=== PATIENT | male | born 1985 | race Caucasian/White ===

== ENCOUNTER 2020-05-23 16:31 | Emergency (ER) | payer BC, SELFPAY ==
[2020-05-23 16:40] VITALS: BP 154/90; PULSE 104; RESP 16; TEMP 36.8; O2SAT 97
[2020-05-23] MEDS: predniSONE 20 MG TABLET 60 MG PO (16:45)
[2020-05-23] MEDS: FAMOTIDINE 20 MG TABLET PO (16:46)
[2020-05-23] MEDS: hydrOXYzine HCL 25 MG TABLET 50 MG PO (16:46)
--- NOTE | 2020-05-23 16:55 | ED.ALLEREA ---
HPI - Allergic Reaction General Chief complaint: Allergic Reaction <Malachi Gayle PA-C - Last Filed: 05/23/20 17:00> Stated complaint: insect sting left knee cap, allergic reaction <Malachi Gayle PA-C - Last Filed: 05/23/20 17:00> Time Seen by Provider: 05/23/20 16:33 <Malachi Gayle PA-C - Last Filed: 05/23/20 17:00> Source: patient <Malachi Gayle PA-C - Last Filed: 05/23/20 17:00> Mode of arrival: ambulatory <Malachi Gayle PA-C - Last Filed: 05/23/20 17:00> Limitations: no limitations <Malachi Gayle PA-C - Last Filed: 05/23/20 17:00> History of Present Illness HPI narrative: Patient is a 34-year-old male who presents with wasp sting to the left inner knee that occurred just prior to arrival patient notes aching pain with redness and swelling patient did use an EpiPen patient on arrival notes discomfort in the location of the sting but denies other injuries or complaints and has not taken anything else for his symptoms <Malachi Gayle PA-C - Last Filed: 05/23/20 17:00> Related Data Allergies/adverse reactions: Allergies Allergy/AdvReac Type Severity Reaction Status Date / Time poison mena extract Allergy Unknown Verified 10/09/19 12:32 <Malachi Gayle PA-C - Last Filed: 05/23/20 17:00> Review of Systems Review of Systems: All systems reviewed & are unremarkable except as noted in HPI and below <Malachi Gayle PA-C - Last Filed: 05/23/20 17:00> PMFSH Past Medical History Medical History: Medical History (Updated 05/24/20 @ 00:00 by Rosalba Bello) Anxiety <Malachi Gayle PA-C - Last Filed: 05/23/20 17:00> Surgical History Surgical History: Surgical History (Updated 05/23/20 @ 16:56 by Malachi Gayle PA-C) History of orthopedic surgery <Malachi Gayle PA-C - Last Filed: 05/23/20 17:00> Exam Narrative: Exam Narrative: GENERAL: Well-appearing, well-nourished, and in no acute distress. HEAD: Normocephalic, atraumatic. EYES: PERRLA and EOMI. ENT: Nares clear, no rhinorrhea or epistaxis. Mucous membranes moist. Oropharynx without tonsillar hypertrophy exudate or other lesions. No angioedema in the oropharynx NECK: Supple. No adenopathy or masses. No stridor CHEST: Clear to auscultation. No respiratory distress. No wheezes rales or rhonchi HEART: Regular rate and rhythm. No murmur heard. EXTREMITIES: Normal range of motion. No edema. SKIN: Warm, dry, patient with red tender swollen area to the left medial knee consistent with insect sting NEURO: No focal deficits. Alert and oriented x3. Neurovascularly intact PSYCH: Normal mood and affect. <DARLEEN Francois Filed: 05/23/20 17:00> Course Course Emergency Course: Patient in the room in no distress aware of case findings treatment plan and diagnosis felt appropriate for outpatient reevaluation <DARLEEN Francois Last Filed: 05/23/20 17:00> Vital Signs Vital signs: Vital Signs Temperature 36.8 C 05/23/20 16:40 Pulse Rate 104 H 05/23/20 16:40 Respiratory Rate 16 05/23/20 16:40 Blood Pressure 154/90 H 05/23/20 16:40 Pulse Oximetry 97 05/23/20 16:40 Temperature 36.8 C 05/23/20 16:40 Pulse Rate 107 H 05/23/20 17:38 Respiratory Rate 18 05/23/20 17:38 Blood Pressure 140/95 H 05/23/20 17:38 Pulse Oximetry 98 05/23/20 17:38 <DARLEEN Francois Last Filed: 05/23/20 17:00> Vital Signs Temperature 36.8 C 05/23/20 16:40 Pulse Rate 104 H 05/23/20 16:40 Respiratory Rate 16 05/23/20 16:40 Blood Pressure 154/90 H 05/23/20 16:40 Pulse Oximetry 97 05/23/20 16:40 Temperature 36.8 C 05/23/20 16:40 Pulse Rate 107 H 05/23/20 17:38 Respiratory Rate 18 05/23/20 17:38 Blood Pressure 140/95 H 05/23/20 17:38 Pulse Oximetry 98 05/23/20 17:38 <Laury Wheeler MD - Last Filed: 05/31/20 19:00> MDM - Allergic Reaction MDM Narrative Medical decision m
[2020-05-23 17:38] VITALS: BP 140/95; PULSE 107; RESP 18; O2SAT 98
== END 2020-05-23 17:43 | disposition home or self-care (01) ==
LOC: ANHED 17:01
PROVIDERS: Emergency Provider Emergency Medicine; PCP Nurse Practitioner Family
DX: T63.441A Toxic effect of venom of bees, accidental (unintentional), initial encounter (principal)
CPT/HCPCS: 99283; A9270; J7512

== ENCOUNTER 2020-09-06 22:08 | Emergency (ER) | payer BC, SELFPAY ==
--- NOTE | ~2020-09-06 | CT_ITS ---
EXAMINATION: CT abdomen pelvis w con DATE: 09/06/2020 23:47 INDICATION: Right upper quadrant abdominal pain for 3 days TECHNIQUE: Computed tomography (CT) of the abdomen and pelvis was performed with 100 cc Omnipaque 350 intravenous contrast. The dose-length product was 718.26 mGy-cm. Automated exposure control and iter ative reconstruction technique were employed. COMPARISON: CT dated 10/21/2017 FINDINGS: Lung bases are unremarkable. Heart size normal. No pleural or pericardial effusion. No sign ificant vascular abnormality. Small hiatal hernia. No acute osseous abnormality. There is mild thicke alvaro of the distal esophagus, suspicious for esophagitis. No significant vascular abnormality. No lym phadenopathy. Status post appendectomy. Gallbladder is contracted. Nonobstructive bowel gas pattern. No free air or free fluid. No evidence for hernia. No lymphadenopathy. The liver, spleen, pancreas, adrenal glands and kidneys are unremarkable. IMPRESSION: 1. Small hiatal hernia with thickening of the distal esophagus, suspicious for esophagitis. Reviewed, dictated and finalized at location A. [employer]
--- NOTE | 2020-09-06 22:16 | ED.ABDPAIN ---
HPI - Abdominal Pain General Chief Complaint: Abdominal Pain Stated Complaint: gall stone Time Seen by Provider: 09/06/20 22:15 Source: patient Mode of arrival: ambulatory Limitations: no limitations History of Present Illness HPI narrative: Patient is a 34-year-old male who presents for evaluation of right-sided abdominal pain. Patient reports a 3-day history of intermittent, worsening right upper quadrant pain which is described as sharp, aching in nature. No associated nausea, vomiting or fever. No chest pain or shortness of breath. Patient denies any lower abdominal pain, denies urinary symptoms, no dysuria or hematuria. He has a history of appendectomy. Related Data Home Medications Medication Instructions Recorded Confirmed baclofen 10 mg PO TID 09/06/20 09/06/20 duloxetine 30 mg PO 09/06/20 lutein 40 mg PO DAILY 09/06/20 omega-3 fatty acids [Fish Oil] 1,000 mg PO DAILY 09/06/20 pantoprazole 40 mg PO 09/06/20 pregabalin 225 mg PO 09/06/20 Allergies Allergy/AdvReac Type Severity Reaction Status Date / Time poison mnea extract Allergy Unknown Hives Verified 09/06/20 22:33 bee venom protein (honey bee) Allergy Hives Verified 09/06/20 22:33 [bees] Review of Systems Review of Systems: Narrative: CONSTITUTIONAL: Denies fever, chills, or sweats. EYES: Denies visual changes, redness, or discharge. ENT: Denies rhinorrhea, congestion, sore throat, or otalgia. CARDIOVASCULAR: Denies chest pain, palpitations, or edema. RESPIRATORY: Denies cough or dyspnea. GASTROINTESTINAL: Reports right upper quadrant abdominal pain without nausea, vomiting or diarrhea GENITOURINARY: Denies dysuria or hematuria. SKIN: Denies rash or itching. MUSCULOSKELETAL: Denies back pain, joint pain, or myalgia. NEUROLOGIC: Denies headache, numbness, or weakness. [facility] Past Medical History Medical History (Updated 09/07/20 @ 00:06 by Laury Wheeler MD) Anxiety Surgical History Surgical History (Updated 09/06/20 @ 22:28 by Laury Wheeler MD) History of appendectomy History of orthopedic surgery Social History Social History (Updated 09/06/20 @ 22:29 by Laury Wheeler MD) Tobacco type: smokeless tobacco Smokeless tobacco user: chewing tobacco Alcohol intake: current Alcohol use details: Social, rare Substance use: never Living arrangements: with family Gender identity (if verbalized by the patient): Male Exam Narrative: Exam Narrative: GENERAL: Awake, alert, conversant HEAD: Normocephalic, atraumatic. EYES: PERRLA and EOMI. ENT: Nares clear, no rhinorrhea or epistaxis. Mucous membranes moist. NECK: Supple. CHEST: No respiratory distress, breathing even and non labored HEART: Regular rate, sinus rhythm ABDOMEN:Non distended, mildly tender in the right upper quadrant, no rebound, no rigidity, no guarding, no other focal tenderness EXTREMITIES: Normal range of motion. No edema. SKIN: Warm, dry, no rash. NEURO:No focal deficits. Alert and oriented x3 Course Vital Signs Vital signs: Vital Signs Temperature 36.2 C L 09/06/20 22:28 Pulse Rate 92 09/06/20 22:28 Respiratory Rate 18 09/06/20 22:28 Blood Pressure 145/99 H 09/06/20 22:28 Pulse Oximetry 100 09/06/20 22:28 Temperature 36.7 C 09/07/20 00:14 Pulse Rate 70 09/07/20 00:14 Respiratory Rate 16 09/07/20 00:14 Blood Pressure 142/79 H 09/07/20 00:14 Pulse Oximetry 100 09/07/20 00:14 MDM - Abdominal Pain MDM Narrative Medical decision making narrative: Patient presented for evaluation of upper abdominal pain. At the time of assessment, ABCs are intact and vital signs are stable. Mild right upper quadrant epigastric pain at the time of assessment. No chest pain or back pain. No shortness of breath. No anginal type symptoms. Somewhat concerning for cholelithiasis versus cholecystitis. Laboratory results are reassuring. No leukocytosis, no transaminitis, hyperbilirubinemia or elevation in lipase. CT s
[2020-09-06 22:28] VITALS: BP 145/99; PULSE 92; RESP 18; TEMP 36.2; O2SAT 100
[2020-09-06 23:01] LABS: Basophils Percent Auto 0.7 % (0.2-1.2); Eosinophils Absolute Auto 0.1 K/mm3 (0-0.3); Eosinophils Percent Auto 2.1 % (0-4.4); Hematocrit 46.8 % (42.0-52.0); Immature Granulocyte Absolute 0.01 K/mm3 (0.00-0.031); Immature Granulocyte Percent A 0.2 % (0-0.5); Lymphocytes Absolute Auto 2.33 K/mm3 (0.9-3.2); Lymphocytes Percent Auto 41.5 % (18.3-44.2); Mean Corpuscular HGB Conc 34.2 g/dl (32-36); Mean Corpuscular Hemoglobin 29.7 pg (26-34); Mean Platelet Volume 8.8 fl (7.4-10.4); Monocytes Absolute Auto 0.7 K/mm3 (0.1-0.6); Monocytes Percent Auto 11.9 % (2.6-8.5); Neutrophils Absolute Auto 2.5 K/mm3 (1.3-6.7); Neutrophils Percent Auto 43.6 % (45.5-73.1); Platelet Count Result 260 k/mm3 (150-375); Red Blood Count 5.38 M/mm3 (4.6-6.20); Red Cell Distribution Width 12.1 % (11.5-14.5); White Blood Count 5.6 K/mm3 (4.5-10.0)
[2020-09-06 23:25] LABS: Alanine Aminotransferase 38 U/L (4-50); Albumin Level 3.8 g/dL (3.5-5.1); Alkaline Phosphatase 51 U/L (38-126); Anion Gap 5 mmol/L (8-16); Aspartate Amino Transferase 27 U/L (17-59); Bilirubin,Total 0.4 mg/dL (0.2-1.3); Blood Urea Nitrogen 17 mg/dL (9-20); Calcium 8.5 mg/dL (8.4-10.2); Carbon Dioxide 30 mmol/L (22-30); Chloride 104 mmol/L (98-107); Estimated CRCL calculation 131 ml/min; Estimated Glomerular Filt Rate > 60; Glucose 99 mg/dL (75-110); Lipase 51 U/L (23-300); Potassium 3.6 mmol/L (3.4-5.0); Sodium 139 mmol/L (137-145)
[2020-09-07 00:14] VITALS: BP 142/79; PULSE 70; RESP 16; TEMP 36.7; O2SAT 100
== END 2020-09-07 00:15 | disposition home or self-care (01) ==
PROVIDERS: Emergency Provider Emergency Medicine; PCP Nurse Practitioner Family
DX: K20.90 Esophagitis, unspecified without bleeding (principal); F41.9 Anxiety disorder, unspecified; F17.220 Nicotine dependence, chewing tobacco, uncomplicated
CPT/HCPCS: 36415; 74177; 80053; 83690; 85025; 99284; Q9967

== ENCOUNTER 2020-10-10 00:39 | Outpatient (CLI) | payer BC, SELFPAY ==
[2020-10-10 22:05] LABS: SARS-CoV-2 RNA PCR Negative
== END 2020-10-10 00:40 | disposition home or self-care (01) ==
LOC: ANHCOVIDDT 00:39
PROVIDERS: PCP Nurse Practitioner Family; Visit Provider Internal Medicine Gastroenterology
DX: Z01.812 Encounter for preprocedural laboratory examination (principal); Z20.822 Contact with and (suspected) exposure to COVID-19
CPT/HCPCS: C9803; U0003; U0005

== ENCOUNTER 2020-10-13 01:23 | Day surgery (SDC) | payer BC, SELFPAY ==
[2020-09-28 10:44] VITALS: BMI 31.2
[2020-10-13 12:02] VITALS: BP 135/85; PULSE 50; RESP 16; TEMP 36.8; O2SAT 98; BMI 30.6
[2020-10-13] MEDS: LACTATED RINGERS 1,000 ML 150 ML IV CONT (12:18)
--- NOTE | 2020-10-13 14:42 | WPDHPUPDATE1 ---
History and Physical Update Update Date/Time: 10/13/20 14:42 History and Physical has been reviewed, including an updated exam of the patient. There are NO changes in the patient's condition. Risks, benefits, and alternatives have been discussed and questions answered. Patient agrees to proceed with procedure.
[2020-10-13] MEDS: BENZOCAINE (*SP) 60 ML SPRAY CAN (HURRICAINE) 1 SPRAY MUCOUS MEM (14:50)
[2020-10-13 15:00] VITALS: BP 100/74; PULSE 78; RESP 17; O2SAT 96
[2020-10-13 15:10] VITALS: BP 114/84; PULSE 78; RESP 17; O2SAT 100
[2020-10-13 15:20] VITALS: BP 130/84; PULSE 78; RESP 17; O2SAT 99
== END 2020-10-13 15:42 | disposition home or self-care (01) ==
PROVIDERS: PCP Nurse Practitioner Family; Visit Provider Internal Medicine Gastroenterology
PROC: 0DJ08ZZ Inspection of Upper Intestinal Tract, Via Natural or Artificial Opening Endoscopic (ICD-10-PCS; CPT 43235; principal; 2020-10-13 14:00)
DX: K21.00 Gastro-esophageal reflux disease with esophagitis, without bleeding (principal); R13.10 Dysphagia, unspecified; K44.9 Diaphragmatic hernia without obstruction or gangrene; K29.50 Unspecified chronic gastritis without bleeding; F41.9 Anxiety disorder, unspecified; F17.220 Nicotine dependence, chewing tobacco, uncomplicated
CPT/HCPCS: 43239; 88305; J2704; J7120

== ENCOUNTER → 2021-01-02 01:39 | Outpatient (CLI) | payer BC, SELFPAY ==
[2021-01-02 19:04] LABS: SARS-CoV-2 RNA PCR Negative
== END ==
PROVIDERS: PCP Nurse Practitioner Family; Visit Provider Surgery
DX: Z01.812 Encounter for preprocedural laboratory examination (principal); Z20.822 Contact with and (suspected) exposure to COVID-19
CPT/HCPCS: C9803; U0003; U0005

== ENCOUNTER 2021-01-02 11:28 | Outpatient (CLI) | payer BC, SELFPAY ==
--- NOTE | ~2021-01-02 | XR_ITS ---
EXAMINATION: XR chest 2V DATE: 01/02/2021 11:54 INDICATION: Gastroesophageal reflux disease with esophagitis. TECHNIQUE: Frontal and lateral views of the chest were obtained. COMPARISON: Chest 2 views 10/27/2017, CT abdomen and pelvis 09/06/2020 FINDINGS: The chest demonstrates clear lungs without pneumonia, pleural effusion, or pneumothorax. Th e heart size is normal. IMPRESSION: 1. No acute cardiopulmonary disease. Reviewed, dictated and finalized at location B.
--- NOTE | 2021-01-02 11:30 | ECG_ITS ---
Measurements Intervals [place] Rate: 67 P: 26 [place]: 160 QRS: 15 QRSD: 95 T: 13 QT: 362 QTc: 384 Interpretive Statements SINUS RHYTHM NORMAL ECG Electronically Signed On 01-02-2021 12:20:38 CDT by Daniel Das D.O.
[2021-01-02 12:10] LABS: Basophils Percent Auto 0.4 % (0.2-1.2); Eosinophils Absolute Auto 0.1 K/mm3 (0-0.3); Eosinophils Percent Auto 1.8 % (0-4.4); Hematocrit 50.8 % (42.0-52.0); Hemoglobin 17.2 g/dL (14.0-18.0); Immature Granulocyte Absolute 0.01 K/mm3 (0.00-0.031); Immature Granulocyte Percent A 0.2 % (0-0.5); Lymphocytes Absolute Auto 1.38 K/mm3 (0.9-3.2); Lymphocytes Percent Auto 27.4 % (18.3-44.2); Mean Corpuscular HGB Conc 33.9 g/dl (32-36); Mean Corpuscular Hemoglobin 30.6 pg (26-34); Mean Corpuscular Volume 90.2 fl (80-100); Mean Platelet Volume 9.2 fl (7.4-10.4); Monocytes Absolute Auto 0.6 K/mm3 (0.1-0.6); Monocytes Percent Auto 10.9 % (2.6-8.5); Neutrophils Percent Auto 59.3 % (45.5-73.1); Platelet Count Result 264 k/mm3 (150-375); Red Blood Count 5.63 M/mm3 (4.6-6.20); Red Cell Distribution Width 12.5 % (11.5-14.5)
[2021-01-02 12:20] LABS: Anion Gap 4 mmol/L (8-16); Blood Urea Nitrogen 16 mg/dL (9-20); Calcium 8.8 mg/dL (8.4-10.2); Carbon Dioxide 30 mmol/L (22-30); Chloride 105 mmol/L (98-107); Estimated Glomerular Filt Rate > 60; Glucose 95 mg/dL (75-110); Potassium 4.4 mmol/L (3.4-5.0); Sodium 139 mmol/L (137-145)
== END 2021-01-02 11:29 | disposition home or self-care (01) ==
LOC: ANHSURGERY 11:33
PROVIDERS: PCP Nurse Practitioner Family; Visit Provider Surgery
DX: K21.00 Gastro-esophageal reflux disease with esophagitis, without bleeding (principal); Z01.818 Encounter for other preprocedural examination
CPT/HCPCS: 36415; 71046; 80048; 85025; 86850; 86900; 86901; 93005

== ENCOUNTER 2021-01-05 02:01 | Day surgery (SDC) | payer BC, SELFPAY ==
[2020-12-22 14:26] VITALS: BMI 31.0
--- NOTE | 2021-01-03 15:38 | PM.IMHP ---
H&P: HPI History of Present Illness Date/Time: 01/03/21 15:38 Chief Complaint: gastroesophageal reflux Narrative: patient is a 35-year-old man who was in the emergency room with epigastric and right upper quadrant burning pain. The pain was shooting and was worse when he 8 and lie down. He had a CT scan which actually showed a thickened distal esophagus suspicious for esophagitis. There were no gallstones. He has been taking large doses of acid reducing medications including Protonix 40 mg b.i.d. and Carafate t.i.d. with the still symptoms of reflux and heartburn. He had an EGD October [address] showed persistent esophagitis. There was no Ceron's esophagus. Patient continues to have recalcitrant reflux symptoms despite maximal medical therapy. He was seen in the office. He had an esophageal manometry which showed a hypotensive lower esophageal sphincter but otherwise esophageal motility that would be satisfactory for fundoplication. CT scan and esophageal manometry suggested a small hiatal hernia however at EGD he was noted to have a large, 7 cm hiatal hernia. After thorough discussion in the office, he is taken to surgery now for laparoscopic Karla fundoplication. Review of Systems Review of Systems: All systems reviewed & are unremarkable except as noted in HPI and below ( HPI and those items noted below) Constitutional: Constitutional: Denies chills and Denies fever(s) Cardiovascular: Cardiovascular: Reports chest pain ( heartburn), Denies diaphoresis, Denies dyspnea and Denies paroxysmal nocturnal dyspnea Respiratory: Respiratory: Denies chest congestion, Reports cough and Denies dyspnea Gastrointestinal: Gastrointestinal: Reports heartburn Musculoskeletal: Musculoskeletal: Reports atrophy and Reports muscle weakness Integumentary/Breasts: Skin/Breast: Denies lesions and Denies rash Neurologic: Reports numbness and Reports other ( complex regional pain syndrome type 1 following right hand surgery) [facility] Past Medical History Medical History Anxiety CRPS (complex regional pain syndrome) type I Right hand and right arm - developed after surgery to right hand and managed by pain management. 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 Gender identity (if verbalized by the patient): Male Spiritual care concerns: No Meds Home Medications and Allergies Home Medications Medication Instructions Recorded Confirmed Type epinephrine 0.3 ml SUB-Q ONCE #2 each 05/23/20 12/22/20 Rx baclofen 10 mg PO TID 09/06/20 12/22/20 History duloxetine 30 mg PO BID 09/06/20 12/22/20 History lutein 40 mg PO DAILY 09/06/20 12/22/20 History omega-3 fatty acids [Fish Oil] 1,000 mg PO DAILY 09/06/20 12/22/20 History pantoprazole 40 mg PO BID 09/06/20 12/22/20 History pregabalin 225 mg PO BID 09/06/20 12/22/20 History naltrexone 50 mg tablet 4.5 mg PO BID 09/14/20 12/22/20 History sucralfate 1 gram tablet 1 g PO TID tablet 09/14/20 12/22/20 History multivitamin 1 tablet PO DAILY 10/24/20 12/22/20 History vitamin B complex 1 tablet PO DAILY 10/24/20 12/22/20 History Allergies Allergy/AdvReac
--- NOTE | 2021-01-04 10:06 | WPDANESEPPF ---
Anes - Initial Pre Proc Eval Procedure: Operation Date: 01/05/21 10:30 Proposed Procedures p Laparoscopic Karla Fundoplication - Dustin Whitaker MD Date/Time: 01/04/21 10:06 Surgeon: Dustin Whitaker MD Pre Op Diagnosis: GERD with Esophagitis Patient Data Age: 35 Gender: M Height: 1.75 m Weight: 95.25 kg Allergies Allergy/AdvReac Type Severity Reaction Status Date / Time poison mena extract Allergy Unknown Hives Verified 01/05/21 09:00 bee venom protein (honey bee) Allergy Hives Verified 01/05/21 09:00 [bees] Home Medications Medication Instructions Recorded Confirmed Type epinephrine 0.3 ml SUB-Q ONCE #2 each 05/23/20 12/22/20 Rx baclofen 10 mg PO TID 09/06/20 01/05/21 History duloxetine 30 mg PO BID 09/06/20 01/05/21 History lutein 40 mg PO DAILY 09/06/20 01/05/21 History omega-3 fatty acids [Fish Oil] 1,000 mg PO DAILY 09/06/20 01/05/21 History pantoprazole 40 mg PO BID 09/06/20 01/05/21 History pregabalin 225 mg PO BID 09/06/20 01/05/21 History naltrexone 50 mg tablet 4.5 mg PO BID 09/14/20 12/22/20 History sucralfate 1 gram tablet 1 g PO TID tablet 09/14/20 01/05/21 History multivitamin 1 tablet PO DAILY 10/24/20 01/05/21 History vitamin B complex 1 tablet PO DAILY 10/24/20 01/05/21 History memantine 5 mg PO BID 01/05/21 01/05/21 History Patient hx anesthesia problems: none Family hx anesthesia problems: none PMFSH Past Medical History Medical History (Updated 01/04/21 @ 10:08 by Rashad Yi MD) Anxiety CRPS (complex regional pain syndrome) type I Right hand and right arm - developed after surgery to right hand and managed by pain management. Hiatal hernia with GERD and esophagitis Obesity Surgical History Surgical History History of appendectomy History of esophagogastroduodenoscopy (EGD) History of orthopedic surgery Family History Family History Father Cerebrovascular accident Mother Hypertension Other Diabetes mellitus Heart disease Cancer Social History Social History Tobacco type: cigarettes and smokeless tobacco Smokeless tobacco user: chewing tobacco Additional smoking assessment comments: 3/4 OF A CAN/DAY X 15 YRS Alcohol intake: current Drinks per week: 4 Substance use: never Substance use type: does not use Living arrangements: with family 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 Questions were solicited and answers provided to the satisfaction of the patient/family/POA.
[2021-01-05] VITALS (12 sets, daily range): BP systolic 125–144; BP diastolic 75–89; PULSE 72–106; RESP 14–20; TEMP 36.1–37.4; O2SAT 93–99; BMI 30.1
[2021-01-05] MEDS: LACTATED RINGERS 1,000 ML 30 ML IV CONT ×2 (09:30→15:05)
--- NOTE | 2021-01-05 10:38 | WPDHPUPDATE1 ---
History and Physical Update Update Date/Time: 01/05/21 10:38 History and Physical has been reviewed, including an updated exam of the patient. There are NO changes in the patient's condition. Risks, benefits, and alternatives have been discussed and questions answered. Patient agrees to proceed with procedure.
[2021-01-05] MEDS: ceFAZolin 2 GM/D5W 50 ML 2 GM/50 ML BAG IVPB (10:49)
[2021-01-05] MEDS: BUPIVACAINE/EPINEPHRINE 0.5% 30 ML VIAL INFILTRATE (12:07)
[2021-01-05] MEDS: ceFAZolin SODIUM 1 GM VIAL IV PUSH (14:40)
[2021-01-05] MEDS: HYDROmorphone HCL INJ (*CRX) 1 MG/ML SYR 0.25 MG IV PUSH ×7 (15:27→16:14)
--- NOTE | 2021-01-05 15:27 | PM.PROC ---
Procedure Note - Detailed Date of procedure: 01/05/21 Pre-op diagnosis: GERD with Esophagitis Gastroesophageal reflux, hiatal hernia Post-op diagnosis: same Procedure performed: Laparoscopic Karla fundoplication Description of procedure: The patient was taken to surgery and induced into general anesthesia. Mishra catheter was placed. Full prep and drape of the abdomen was carried out. 0.5% Marcaine with epinephrine local was infiltrated prior to placement of each of the trocars. The initial trocar was in the midline cephalad to the umbilicus. The varies needle was used to gain access to the abdominal cavity. Water drop technique was used to confirm. We insufflated the abdomen and then used a [address] the initial port. With this port intraperitoneal we then placed the remaining ports under direct visualization. A left lateral subcostal 10 11 port was placed. Right and left epigastric trocars which were also 10 11 ports were placed. A 12 mm left lateral subcostal port was placed. The patient was then placed in reverse Trendelenburg. A liver retractor was introduced from the right lateral port and then used to elevate the lateral segment of the left lobe of the liver, thereby exposing the diaphragmatic hiatus and hiatal hernia. We started by dividing the hepatic colic ligament over lying the right erik. Virtually all the dissection was done with the LigaSure. No cautery was used. The surgery was made more difficult in that the adhesions were tenacious and it seemed that all dissection was accompanied with trouble some bleeding today. The bleeding was not significant but did make it difficult to visualize and required attention for hemostasis. We then further exposed the right erik of the diaphragm dissecting between this and the hiatal hernia. Gentle traction on the herniated contents was used and we eventually were able to identify the left erik and dissect posterior to the esophagus and upper stomach. Some additional dissection in the anterior most aspect of the diaphragmatic hiatus was also carried out. We then turned the stomach so that the greater curvature and greater omentum were exposed. This was very difficult as the posterior aspect of the stomach was stuck to the retroperitoneum and the upper aspect or fundus of the stomach was stuck not only to they posterior erik but also to the spleen. Using the LigaSure, we entered the lesser sac and divided the greater omentum from the greater curvature of the stomach. This was done initially in the upper portion the stomach but we were able to mobilize a little of the stomach, I had to go back and start at about the midportion the stomach and repeat the process. It was still difficult to expose the posterior aspect of the stomach. We shifted our camera position and tried several different trocar positions. Eventually the posterior adhesions of the stomach were taken down. Adhesions to the left erik were taken down and finally the adhesions to the undersurface of the spleen were taken down without causing any splenic bleeding. Like the other adhesions in the surgery, all were accompanied by much more bleeding than we normally would see. This occurred despite being exceptionally careful and identifying the anatomy as best possible before dissecting. The fundus actually was very close to and somewhat adherent with adhesions to the spleen. We took great care to avoid any injury to the spleen or its vessels. Fortunately there was no bleeding whatsoever in dissecting the stomach off the spleen. We then further went on to dissect adhesions that were overlying the left erik. Eventually the left erik was fully exposed. The esophagus is then retracted to the right and dissection was carried out in the mediastinum freeing the esophagus from adhesions there and elongating the shortened esophagus. This dissection was carried quite high in the mediastinum. We then turned the stom
--- NOTE | 2021-01-05 16:45 | ADMGEN ---
This patient, Olvin Mead Jr., was admitted to . Patient/family oriented to hospital policies and general routines including ID bracelet, bed and alarms, visiting hours, pain management, procedures, bathroom and other care routines, personal items, smoking policy, room service/diet, and visiting hours. Information on how to activate the Rapid Response Team has been discussed. Patient/Family are encouraged to report perceived risks to care and to ask questions if they do not understand what they are told or what they should do.
[2021-01-05] MEDS: LACTATED RINGERS 1,000 ML 80 ML IV CONT (17:06)
[2021-01-05] MEDS: PREGABALIN (*CRX) 75 MG CAPSULE 225 MG PO (17:06)
[2021-01-05] MEDS: BACLOFEN 10 MG TABLET PO (17:06)
[2021-01-05] MEDS: DULoxetine HCL 30 MG CAPSULE.DR PO (17:13)
[2021-01-05] MEDS: MEMANTINE 5 MG TABLET PO (17:13)
[2021-01-05] MEDS: ACETAMINOPHEN 500 MG TABLET 1000 MG PO (19:00)
[2021-01-05] MEDS: ENOXAPARIN 30 MG/0.3 ML SYRINGE SUB-Q (22:05)
[2021-01-06] VITALS: BP 127/70; PULSE 85; RESP 16; TEMP 36; O2SAT 95
[2021-01-06 04:00] VITALS: BP 141/71; PULSE 82; RESP 16; TEMP 36.8; O2SAT 96
[2021-01-06] MEDS: LACTATED RINGERS 1,000 ML 80 ML IV CONT (04:35)
[2021-01-06] MEDS: ACETAMINOPHEN 500 MG TABLET 1000 MG PO ×2 (04:35→10:13)
[2021-01-06 05:59] LABS: Hematocrit 46.8 % (42.0-52.0); Hemoglobin 15.6 g/dL (14.0-18.0); Mean Corpuscular HGB Conc 33.3 g/dl (32-36); Mean Corpuscular Hemoglobin 29.8 pg (26-34); Mean Corpuscular Volume 89.5 fl (80-100); Mean Platelet Volume 9.2 fl (7.4-10.4); Platelet Count Result 276 k/mm3 (150-375); Red Blood Count 5.23 M/mm3 (4.6-6.20); Red Cell Distribution Width 12.2 % (11.5-14.5)
[2021-01-06 06:13] LABS: Anion Gap 5 mmol/L (8-16); Blood Urea Nitrogen 12 mg/dL (9-20); Calcium 8.5 mg/dL (8.4-10.2); Carbon Dioxide 28 mmol/L (22-30); Chloride 106 mmol/L (98-107); Estimated CRCL calculation 115 ml/min; Estimated Glomerular Filt Rate > 60; Glucose 97 mg/dL (75-110); Potassium 3.9 mmol/L (3.4-5.0); Sodium 139 mmol/L (137-145)
[2021-01-06] MEDS: ENOXAPARIN 30 MG/0.3 ML SYRINGE SUB-Q (08:42)
[2021-01-06] MEDS: DULoxetine HCL 30 MG CAPSULE.DR PO (08:43)
[2021-01-06] MEDS: MEMANTINE 5 MG TABLET PO (08:43)
[2021-01-06] MEDS: PANTOPRAZOLE 40 MG TABLET PO (08:43)
[2021-01-06] MEDS: BACLOFEN 10 MG TABLET PO (08:43)
[2021-01-06] MEDS: PREGABALIN (*CRX) 75 MG CAPSULE 225 MG PO (08:45)
--- NOTE | 2021-01-06 10:43 | PM.DS ---
DS: Admitting Diagnosis Admitting Diagnosis Admitting Diagnosis: Gastroesophageal reflux disease with esophagitis complex regional pain syndrome type 1 right hand and arm DS: Discharge Diagnosis Discharge Diagnosis (1) Hiatal hernia with GERD and esophagitis: Code(s): K44.9 - Diaphragmatic hernia without obstruction or gangrene; K21.00 - Gastro-esophageal reflux disease with esophagitis, without bleeding Status: Chronic (2) CRPS (complex regional pain syndrome) type I: Code(s): G90.50 - Complex regional pain syndrome I, unspecified Status: Chronic DS: Summary Hospital Course Hospital Course: patient was seen in the office on a couple of different occasions prior to surgery. He was known to have recalcitrant gastroesophageal reflux disease with esophagitis documented by EGD and biopsy. Preoperatively he had esophageal manometry studies that showed no contraindication to fundoplication. After thorough discussion, he was taken to surgery on 01/05/2021 and underwent laparoscopic Karla fundoplication. The procedure was somewhat difficult taking about 3-1/2 hours. It went well however. The patient was comfortable being observed overnight. He was tolerating liquids and some soft foods without difficulty. He was taking only Tylenol for pain. He is discharged now on postop day 1. In good condition. Status at Discharge Functional status at discharge: independent ambulation Overall status at discharge: patient is progressing back to baseline Time Spent with Patient Time attestation: Total time spent providing and/or coordinating discharge services: Time spent: Less than 30 minutes Exam Resp: Effort & Inspection: normal respiratory effort and able to speak in complete sentences Auscultation: clear to auscultation bilaterally, no rales and no wheezes GI: Inspection: incision ( All incisions healing well) GI Palp: Yes Soft to palpation and Yes Tenderness to palpation present (GI) Auscultation: normal bowel sounds DS: Data Data Completed and Pending Labs on day of discharge: Labs from last 24 hours 01/06/21 01/06/21 05:25 05:25 WBC 13.0 H RBC 5.23 Hgb 15.6 Hct 46.8 MCV 89.5 MCH 29.8 MCHC 33.3 RDW 12.2 Plt Count 276 MPV 9.2 Sodium 139 Potassium 3.9 Chloride 106 Carbon Dioxide 28 Anion Gap 5 L BUN 12 Creatinine 0.90 Estim Creat Clear Calc 115 Estimated GFR > 60 Glucose 97 Calcium 8.5 Discharge Plan Discharge Patient Disposition: Home, Self-Care Discharge Instructions: Ambulate 3-4 x per day and as tolerated. No lifting over 15-20lbs. May bathe or shower. Stairs are OK. May drive a car in 3 days. low fiber diet next week then as tolerated Patient Instructions: How to Stop Smoking (DC), Pain Management (DC) Stand Alone Forms: Low Residue/Low Fiber Diet Follow-up/Referrals: Dustin Whitaker MD [Physician] - 2 Weeks Discharge Medications: New acetaminophen 500 mg Tablet 1,000 mg PO Q6H PRN (Reason: Pain 1-5) Qty: 40 RF: 0 ketorolac 10 mg tablet 10 mg PO Q6H 4 Days Qty: 16 RF: 0 Continued naltrexone 50 mg tablet 4.5 mg PO BID RF: 0 sucralfate 1 gram tablet 1 g PO TID RF: 0 vitamin B complex [B Complex-Vitamin B12] Tablet 1 tablet PO DAILY RF: 0 multivitamin Tablet 1 tablet PO DAILY RF: 0 epinephrine 0.3 mg/0.3 mL auto-injector 0.3 ml SUB-Q ONCE Qty: 2 RF: 0 baclofen 10 mg tablet 10 mg PO TID RF: 0 pantoprazole 40 mg tablet,delayed release (DR/EC) 40 mg PO BID RF: 0 omega-3 fatty acids Capsule 1,000 mg PO DAILY RF: 0 duloxetine 30 mg capsule,delayed release(DR/EC) 30 mg PO BID RF: 0 pregabalin 225 mg capsule 225 mg PO BID RF: 0 lutein 40 mg Capsule 40 mg PO DAILY RF: 0 memantine 5 mg Tablet 5 mg PO BID RF: 0
== END 2021-01-06 12:35 | disposition home or self-care (01) ==
LOC: ANHSURGERY 08:42 → ANH3MED 16:54
PROVIDERS: PCP Nurse Practitioner Family; Visit Provider Surgery
PROC: 0DV44ZZ Restriction of Esophagogastric Junction, Percutaneous Endoscopic Approach (ICD-10-PCS; CPT 43281; principal; 2021-01-05 10:30)
DX: K21.00 Gastro-esophageal reflux disease with esophagitis, without bleeding (principal); K44.9 Diaphragmatic hernia without obstruction or gangrene; K22.8 Other specified diseases of esophagus; K66.0 Peritoneal adhesions (postprocedural) (postinfection); R10.13 Epigastric pain; R10.11 Right upper quadrant pain; F41.9 Anxiety disorder, unspecified; G90.511 Complex regional pain syndrome I of right upper limb; F17.220 Nicotine dependence, chewing tobacco, uncomplicated; F17.210 Nicotine dependence, cigarettes, uncomplicated; E66.9 Obesity, unspecified; Z68.30 Body mass index [BMI] 30.0-30.9, adult
CPT/HCPCS: 43250; 36415; 80048; 85027; A9270; C1713; J0131; J0330; J0690; J1100; J1170; J1650; J2250; J2405; J2704; J2710; J3010; J7120

== ENCOUNTER 2021-01-07 00:01 | Inpatient (IN) | payer BC, SELFPAY ==
--- NOTE | ~2021-01-07 | CT_ITS ---
EXAMINATION: CT abdomen pelvis w con DATE: 01/07/2021 02:16 INDICATION: Abdominal pain. Laparoscopic Karla fundoplication on 01/05/2021. TECHNIQUE: Computed tomography (CT) of the abdomen and pelvis was performed with 100 mL Omnipaque 350 intravenous contrast. Automated exposure control and iterative reconstruction technique were employe d. The dose-length product was 578.53 mGy-cm. COMPARISON: CT abdomen and pelvis 09/06/2020 FINDINGS: The visualized portions of the lung bases demonstrate bilateral airspace opacities with vol ume loss, likely atelectasis. There are small pleural effusions. The heart size is normal. No pericar dial effusion. Pneumomediastinum is noted, consistent with recent surgery. There is body wall gas josé miguel aterally. There is a surgical clip in the stomach. There is fat stranding around the distal esophagus , consistent with inflammation. There is wall thickening the distal esophagus, consistent with esopha gitis. There are changes of fundoplication. There is fat stranding around the proximal stomach, consi stent with inflammation. There is low attenuation in the medial spleen, consistent with infarct versu s contusion. The liver, gallbladder, pancreas, adrenal glands, and kidneys are normal. There are no d ilated loops of bowel. There are changes of appendectomy. There are no pathologically enlarged lymph nodes. There is trace pelvic ascites. There are areas of inflammation in the anterior body wall, cons istent with surgical access sites. There is mild thoracic spondylosis. IMPRESSION: 1. Changes of recent fundoplication with distal esophagitis. 2. Infarct versus contusion of the medial spleen. Reviewed, dictated and finalized at location A.
[2021-01-07 00:30] VITALS: BP 141/88; PULSE 93; RESP 18; TEMP 36.6; O2SAT 98
[2021-01-07 01:39] LABS: Basophils Percent Auto 0.3 % (0.2-1.2); Eosinophils Absolute Auto 0.1 K/mm3 (0-0.3); Eosinophils Percent Auto 1.1 % (0-4.4); Hematocrit 46.5 % (42.0-52.0); Hemoglobin 15.5 g/dL (14.0-18.0); Immature Granulocyte Absolute 0.02 K/mm3 (0.00-0.031); Immature Granulocyte Percent A 0.2 % (0-0.5); Lymphocytes Absolute Auto 1.84 K/mm3 (0.9-3.2); Lymphocytes Percent Auto 20.1 % (18.3-44.2); Mean Corpuscular HGB Conc 33.3 g/dl (32-36); Mean Corpuscular Hemoglobin 30.3 pg (26-34); Mean Platelet Volume 8.9 fl (7.4-10.4); Monocytes Absolute Auto 0.9 K/mm3 (0.1-0.6); Monocytes Percent Auto 9.7 % (2.6-8.5); Neutrophils Absolute Auto 6.3 K/mm3 (1.3-6.7); Neutrophils Percent Auto 68.6 % (45.5-73.1); Platelet Count Result 219 k/mm3 (150-375); Red Blood Count 5.11 M/mm3 (4.6-6.20); Red Cell Distribution Width 12.4 % (11.5-14.5); White Blood Count 9.2 K/mm3 (4.5-10.0)
[2021-01-07 01:49] LABS: Prothrombin Time 13.5 Seconds (11.1-14.7)
[2021-01-07 01:50] LABS: Add Urine Microscopic? YES; Appearance Urine Clear (Clear); Bilirubin Urine Negative (Negative); Blood Urine Negative (Negative); Color Urine Yellow (Yellow); Glucose Urine UA Negative (Negative); Ketones Urine Negative (Negative); Leukocyte Esterase Ur Negative LEU/UL (Negative); Mucus Urine Rare /lpf; Nitrate Urine Negative (Negative); Protein Urine Negative (Negative); RBC Urine 0-2 /hpf (0-2); Specific Grav Ur 1.017 (1.001-1.035); Squamous Epithelial Cell Urine Rare /hpf (Few); WBC Urine 0-3 /hpf
[2021-01-07 01:50] LABS: Partial Thromboplastin Time 28.4 SECONDS (22.3-36.8)
[2021-01-07 01:52] LABS: Lactic Acid Reflex 0.8 mmol/L (0.7-2.1)
[2021-01-07 01:53] LABS: Alanine Aminotransferase 93 U/L (4-50); Albumin Level 3.8 g/dL (3.5-5.1); Alkaline Phosphatase 50 U/L (38-126); Anion Gap 3 mmol/L (8-16); Aspartate Amino Transferase 75 U/L (17-59); Bilirubin,Total 0.9 mg/dL (0.2-1.3); Blood Urea Nitrogen 10 mg/dL (9-20); Calcium 8.3 mg/dL (8.4-10.2); Carbon Dioxide 30 mmol/L (22-30); Chloride 106 mmol/L (98-107); Estimated CRCL calculation 105 ml/min; Estimated Glomerular Filt Rate > 60; Glucose 103 mg/dL (75-110); Lipase 37 U/L (23-300); Potassium 4.2 mmol/L (3.4-5.0); Sodium 139 mmol/L (137-145)
[2021-01-07 02:04] LABS: Troponin I < 0.012 ng/mL (0.000-0.034)
[2021-01-07] MEDS: KETOROLAC 30 MG/ML VIAL (*BKC) IV PUSH ×3 (03:11→15:43)
[2021-01-07] MEDS: SODIUM CHLORIDE 0.9% IV 1,000 ML 999 ML IV CONT (03:11)
[2021-01-07 04:09] VITALS: BP 124/85; PULSE 81; RESP 18; O2SAT 96
--- NOTE | 2021-01-07 04:18 | ED.GENADULT ---
HPI - General Adult General Chief complaint: Unspecified Stated complaint: post op pain Time Seen by Provider: 01/07/21 02:12 History of Present Illness HPI narrative: Patient is a 35-year-old gentleman who presents the emergency department with chief complaint of abdominal pain. Patient reports that he had a Karla fundoplication done at our facility yesterday and reports that he was doing well until he went home and then started having severe pain. Patient states the pain is worse with movement and improved with rest patient denies fever denies chills. Patient reports there is been no leakage out of the wounds. Related Data Home Medications Medication Instructions Recorded Confirmed baclofen 10 mg PO TID 09/06/20 01/05/21 duloxetine 30 mg PO BID 09/06/20 01/05/21 lutein 40 mg PO DAILY 09/06/20 01/05/21 omega-3 fatty acids 1,000 mg PO DAILY 09/06/20 01/05/21 pantoprazole 40 mg PO BID 09/06/20 01/05/21 pregabalin 225 mg PO BID 09/06/20 01/05/21 naltrexone 50 mg tablet 4.5 mg PO BID 09/14/20 12/22/20 sucralfate 1 gram tablet 1 g PO TID tablet 09/14/20 01/05/21 multivitamin 1 tablet PO DAILY 10/24/20 01/05/21 vitamin B complex 1 tablet PO DAILY 10/24/20 01/05/21 memantine 5 mg PO BID 01/05/21 01/05/21 Allergies Allergy/AdvReac Type Severity Reaction Status Date / Time poison mena extract Allergy Unknown Hives Verified 01/05/21 17:37 bee venom protein (honey bee) Allergy Hives Verified 01/05/21 17:37 [bees] Review of Systems Review of Systems: Narrative: A 10 system review of systems was completed on the patient and is negative except for what is stated in the HPI. Nursing and ancillary documentation was reviewed. [facility] Past Medical History Medical History Anxiety CRPS (complex regional pain syndrome) type I Right hand and right arm - developed after surgery to right hand and managed by pain management. 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 HEAD: Normocephalic, atraumatic. EYES: PERRLA and EOMI. ENT: Nares clear, no rhinorrhea or epistaxis. Mucous membranes moist. NECK: Supple. CHEST: Clear to auscultation. No respiratory distress. HEART: Regular rate and rhythm. No murmur heard. Normal peripheral pulses. ABDOMEN: Soft, diffuse mild tenderness multiple incision sites show no evidence of erythema or drainage, nondistended, normal active bowel sounds. EXTREMITIES: Normal range of motion. No edema. SKIN: Warm, dry, no rash. NEURO: No focal deficits. Alert and oriented x3. PSYCH: Normal mood and affect. Course Course Emergency Course: CT scan of the abdomen pelvis that showed mildly prominent fluid-filled loops of small bowel in the left upper quadrant without a transition point to suggest small bowel obstruction. There is some mild thickening and edema of the distal esophagus and stomach most likely postsurgical Vital Signs Vital signs: Vital Signs T
--- NOTE | 2021-01-07 05:39 | ADMGEN ---
This patient, Olvin Mead Jr., was admitted to Medical Room 345-01. Patient/family oriented to hospital policies and general routines including ID bracelet, bed and alarms, visiting hours, pain management, procedures, bathroom and other care routines, personal items, smoking policy, room service/diet, and visiting hours. Information on how to activate the Rapid Response Team has been discussed. Patient/Family are encouraged to report perceived risks to care and to ask questions if they do not understand what they are told or what they should do.
[2021-01-07 06:00] VITALS: BP 138/94; PULSE 86; RESP 18; TEMP 36.6; O2SAT 97
[2021-01-07] MEDS: SODIUM CHLORIDE 0.9% IV 1,000 ML 125 ML IV CONT ×2 (06:00→13:59)
[2021-01-07 06:47] VITALS: BMI 32.3
[2021-01-07 10:52] VITALS: O2SAT 93
[2021-01-07 14:00] VITALS: BP 136/90; PULSE 89; RESP 20; TEMP 36.3; O2SAT 98
--- NOTE | 2021-01-07 14:33 | PM.IMHP ---
H&P: HPI History of Present Illness Date/Time: 01/07/21 14:33 Chief Complaint: Upper abdominal pain Narrative: the patient is a 35-year-old man who was evaluated extensively preoperatively and underwent laparoscopic Karla fundoplication 2 days ago on 01/05/2021. His surgery was difficult, lasting 3-1/2 hours. He was observed overnight but yesterday was very comfortable with no dysphagia and taking no pain medication. He was discharged yesterday morning. He did well for awhile but then started having severe pain in the upper abdomen. The patient has a history of complex regional pain syndrome and takes the opioid antagonist naltrexone. Consequently, he has not been able to have any opioid analgesics for his postoperative care. He called me last night and went to the emergency room. He had a thorough evaluation there including lab work, physical examination, and CT scan. He has had no nausea or vomiting. He has had no choking sensations or dysphagia. His ER evaluation was essentially negative. There was evidence of a contusion on the medial spleen which is not surprising considering the upper stomach was very attached to this area of the spleen. He is more comfortable today having received IV Toradol for analgesics. He is admitted now for postoperative pain and pain control. Review of Systems Review of Systems: All systems reviewed & are unremarkable except as noted in HPI and below Constitutional: Constitutional: Denies headache(s) Cardiovascular: Cardiovascular: Denies chest pain and Denies dyspnea Respiratory: Respiratory: Denies cough and Denies dyspnea Gastrointestinal: Gastrointestinal: Reports abdominal pain, Denies bloating, Denies constipation and Denies nausea Neurologic: Denies confusion and Denies headache(s) [facility] Past Medical History Medical History Anxiety CRPS (complex regional pain syndrome) type I Right hand and right arm - developed after surgery to right hand and managed by pain management. 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 Gender identity (if verbalized by the patient): Male Sexual Orientation (if Verbalized by the Patient): Straight or Heterosexual Spiritual care concerns: No Meds Home Medications and Allergies Home Medications Medication Instructions Recorded Confirmed Type epinephrine 0.3 ml SUB-Q ONCE #2 each 05/23/20 01/07/21 Rx baclofen 10 mg PO TID 09/06/20 01/07/21 History duloxetine 30 mg PO BID 09/06/20 01/07/21 History lutein 40 mg PO DAILY 09/06/20 01/07/21 History omega-3 fatty acids 1,000 mg PO DAILY 09/06/20 01/07/21 History pantoprazole 40 mg PO BID 09/06/20 01/07/21 History pregabalin 225 mg PO BID 09/06/20 01/07/21 History naltrexone 50 mg tablet 4.5 mg PO BID 09/14/20 01/07/21 History sucralfate 1 gram tablet 1 g PO TID tablet 09/14/20 01/07/21 History multivitamin 1 tablet PO DAILY 10/24/20 01/07/21 History vitamin B complex 1 tablet PO DAILY 10/24/20 01/07/21 History memantine 5 mg PO BID 01/05/21 01/07/21 History acetaminophen 1,000 mg PO Q6H PRN #40 tablet 01/06/21 01/07/21 Rx ketorolac 10 mg PO Q6H 4 Days #16
[2021-01-07] MEDS: PANTOPRAZOLE 40 MG TABLET PO (15:42)
[2021-01-07] MEDS: DULoxetine HCL 30 MG CAPSULE.DR PO (17:05)
[2021-01-07] MEDS: PREGABALIN (*CRX) 75 MG CAPSULE 225 MG PO (17:05)
[2021-01-07] MEDS: MEMANTINE 5 MG TABLET PO (17:05)
[2021-01-07] MEDS: BACLOFEN 10 MG TABLET PO (17:05)
[2021-01-07 19:46] VITALS: BP 135/79; PULSE 89; RESP 12; TEMP 36.6; O2SAT 98
[2021-01-07] MEDS: ACETAMINOPHEN 500 MG TABLET 1000 MG PO (19:54)
[2021-01-08] MEDS: KETOROLAC 30 MG/ML VIAL (*BKC) IV PUSH ×4 (01:22→23:56)
[2021-01-08 05:44] LABS: Hematocrit 42.3 % (42.0-52.0); Hemoglobin 14.2 g/dL (14.0-18.0); Mean Corpuscular HGB Conc 33.6 g/dl (32-36); Mean Corpuscular Hemoglobin 30.3 pg (26-34); Mean Corpuscular Volume 90.2 fl (80-100); Mean Platelet Volume 8.8 fl (7.4-10.4); Platelet Count Result 209 k/mm3 (150-375); Red Blood Count 4.69 M/mm3 (4.6-6.20); Red Cell Distribution Width 12.2 % (11.5-14.5); White Blood Count 6.3 K/mm3 (4.5-10.0)
[2021-01-08 05:47] VITALS: BP 124/93; PULSE 70; RESP 12; TEMP 35.9; O2SAT 97
[2021-01-08 06:02] LABS: Anion Gap -2 mmol/L (8-16); Blood Urea Nitrogen 8 mg/dL (9-20); Carbon Dioxide 33 mmol/L (22-30); Chloride 109 mmol/L (98-107); Estimated CRCL calculation 133 ml/min; Estimated Glomerular Filt Rate > 60; Glucose 86 mg/dL (75-110); Sodium 140 mmol/L (137-145)
[2021-01-08] MEDS: ACETAMINOPHEN 500 MG TABLET 1000 MG PO (06:09)
[2021-01-08] MEDS: BACLOFEN 10 MG TABLET PO ×3 (08:28→17:00)
[2021-01-08] MEDS: MEMANTINE 5 MG TABLET PO ×2 (08:28→17:01)
[2021-01-08] MEDS: PANTOPRAZOLE 40 MG TABLET PO (08:28)
[2021-01-08] MEDS: DULoxetine HCL 30 MG CAPSULE.DR PO ×2 (08:28→17:01)
[2021-01-08] MEDS: PREGABALIN (*CRX) 75 MG CAPSULE 225 MG PO ×2 (08:30→17:01)
--- NOTE | 2021-01-08 11:28 | PM.PNGS ---
Progress Note: A&P Assessment and Plan (1) Post-operative pain: Code(s): G89.18 - Other acute postprocedural pain Status: Acute Assessment and Plan: still requiring IV Toradol. Advanced to low-fiber diet. Incisions healing well. Continue inpatient care for persistent pain and inability to take narcotic analgesics. (2) History of Karla fundoplication: Code(s): Z98.890 - Other specified postprocedural states Status: Acute Assessment and Plan: No reflux, minimal dysphagia (3) CRPS (complex regional pain syndrome) type I: Code(s): G90.50 - Complex regional pain syndrome I, unspecified Status: Chronic Subjective Subjective Date/Time Seen: 01/08/21 11:28 Post Op day: 3 Patient reports: still having pain ( took IV Toradol already this morning), tolerating liquids well, no bowel movement and nausea Exam GI: Inspection: non-distended and incision ( all incisions healing well) GI Palp: Yes Soft to palpation and Yes Tenderness to palpation present (GI) Auscultation: normal bowel sounds Objective Data Vital Signs Vital Signs: Vital Signs - 24 hr 01/07/21 14:00 01/07/21 19:46 01/08/21 05:47 Temperature 36.3 C L 36.6 C 35.9 C L Pulse Rate 89 89 70 Respiratory Rate 20 12 12 Blood Pressure 136/90 135/79 124/93 H Pulse Oximetry 98 98 97 Intake/Output Intake/Output: Intake & Output 01/05/21 01/06/21 01/07/21 01/08/21 23:59 23:59 23:59 23:59 Intake Total 3580 1040 Output Total 2555 2000 Balance 1025 -960 Meds/Results Medications: Active Medications Generic Name Dose Route Start Last Admin Trade Name Freq PRN Reason Stop Dose Admin Acetaminophen 1,000 mg 01/07/21 14:45 01/08/21 06:09 Acetaminophen 500 Mg Tablet PO 1,000 mg Q6H PRN Administration Pain Rated 5 or Less Baclofen 10 mg 01/07/21 17:00 01/08/21 08:28 Baclofen 10 Mg Tablet PO 10 mg TID MARCK Administration Duloxetine HCl 30 mg 01/07/21 17:00 01/08/21 08:28 Duloxetine Hcl 30 Mg Capsule.Dr PO 30 mg BID MARCK Administration Enoxaparin Sodium 40 mg 01/08/21 09:00 01/08/21 08:28 Enoxaparin 40 Mg/0.4 Ml Syringe SUB-Q Not Given DAILY [facility] Ketorolac Tromethamine 30 mg 01/07/21 14:49 01/08/21 08:31 Ketorolac 30 Mg/Ml Vial (*Bkc) IV PUSH 01/12/21 04:28 30 mg Q6H PRN Administration Pain Rated 6 or Greater Memantine 5 mg 01/07/21 17:00 01/08/21 08:28 Memantine 5 Mg Tablet PO 5 mg BID MARCK Administration Non-Formulary Medication 4.5 mg 01/07/21 17:00 Naltrexone PO 02/06/21 17:01 BID [facility] Non-Formulary Medication 40 mg 01/08/21 09:00 Lutein PO 02/07/21 09:01 DAILY [facility] Ondansetron HCl 4 mg 01/07/21 04:27 Ondansetron Inj 4 Mg/2 Ml Vial IV PUSH Q4H PRN Nausea Pantoprazole Sodium 40 mg 01/08/21 09:00 01/08/21 08:28 Pantoprazole 40 Mg Tablet PO 40 mg QAM MARCK Administration Pregabalin 225 mg 01/07/21 17:00 01/08/21 08:30 Pregabalin (*Crx) 75 Mg Capsule PO 225 mg BID MARCK Administration Radiology Results: ITS Impressions Abdomen/Pelvis CT 01/07/21 09:01 IMPRESSION: 1. Changes of recent fundoplication with distal esophagitis. 2. Infarct versus contusion of the medial spleen. Labs Labs: Laboratory Results - last 24 hr 01/08/21 01/08/21 05:31 05:31 WBC 6.3 RBC 4.69 Hgb 14.2 Hct 42.3 MCV 90.2 MCH 30.3 MCHC 33.6 RDW 12.2 Plt Count 209 MPV 8.8 Sodium 140 Potassium 4.0 Chloride 109 H Carbon Dioxide 33 H Anion Gap -2 L BUN 8 L Creatinine 0.80 Estim Creat Clear Calc 133 Estimated GFR > 60 Glucose 86 Calcium 8.0 L
[2021-01-08 14:00] VITALS: BP 133/83; PULSE 79; RESP 18; TEMP 36.4; O2SAT 98
--- NOTE | 2021-01-08 15:56 | PHAR ---
PT'S HOME MED NALTREXONE 4.5 MG EVALUATED BY PHARMACY. UNABLE TO VERIFY TABLET DUE TO LACK OF UNIDENFIABLE MARKINGS. ACCORDING TO THE PHARMACY LABEL IT IS A COMPOUNDED MEDICATION, PHARMACY COMPOUNDED TABLETS OFTEN LACK IDENTIFIABLE MARKINGS.
[2021-01-08 20:43] VITALS: BP 138/85; PULSE 71; RESP 14; TEMP 36.6; O2SAT 98
[2021-01-09 04:21] VITALS: BP 139/90; PULSE 66; RESP 12; TEMP 36.8; O2SAT 98
[2021-01-09 06:06] VITALS: BP 158/90; PULSE 80; RESP 14; TEMP 36.5; O2SAT 98
--- NOTE | 2021-01-09 06:20 | PC.NURSE ---
At 0410, this patient, who was previously independent with activity, pulled his bathroom assist light. The nurse tech went into his bathroom to find him sitting on the ground next to his toilet. The patient said sorry, I think my legs fell asleep - do you mind helping me up? Nurse tech assisted patient back to bed, took orthostatic vitals (which were within normal limits), and RN assessed patient's neurological status which was grossly normal for him. Patient states he was not injured. Notified Dr. Whitaker of patient fall who has no further orders at this time.
[2021-01-09] MEDS: BACLOFEN 10 MG TABLET PO ×3 (08:11→16:42)
[2021-01-09] MEDS: ENOXAPARIN 40 MG/0.4 ML SYRINGE SUB-Q (08:11)
[2021-01-09] MEDS: PANTOPRAZOLE 40 MG TABLET PO (08:11)
[2021-01-09] MEDS: DULoxetine HCL 30 MG CAPSULE.DR PO ×2 (08:11→16:42)
[2021-01-09] MEDS: MEMANTINE 5 MG TABLET PO ×2 (08:11→16:42)
[2021-01-09] MEDS: PREGABALIN (*CRX) 75 MG CAPSULE 225 MG PO ×2 (08:12→16:42)
[2021-01-09] MEDS: ACETAMINOPHEN 500 MG TABLET 1000 MG PO (10:35)
[2021-01-09] MEDS: KETOROLAC 30 MG/ML VIAL (*BKC) IV PUSH ×2 (13:26→23:05)
[2021-01-09 14:08] VITALS: BP 126/91; PULSE 80; RESP 16; TEMP 36.4; O2SAT 98
--- NOTE | 2021-01-09 15:46 | PM.PNGS ---
Progress Note: A&P Assessment and Plan (1) Post-operative pain: Code(s): G89.18 - Other acute postprocedural pain Status: Acute Assessment and Plan: Overall, pain control is improving but he is still requiring IV Toradol. Tolerating a low fiber diet. Incisions healing well. Continue pain management with Tylenol and IV Toradol due to inability to take narcotic analgesics. Hopefully, patient can be discharged in the next 1-2 days if he continues to improve. (2) History of Karla fundoplication: Code(s): Z98.890 - Other specified postprocedural states Status: Acute (3) CRPS (complex regional pain syndrome) type I: Code(s): G90.50 - Complex regional pain syndrome I, unspecified Status: Chronic Additional Plan I have discussed the plan of care with Dr. Whitaker. Subjective Subjective Date/Time Seen: 01/09/21 15:46 Patient reports: no new complaints, feels better, pain is less, tolerating a regular diet, voiding w/o difficulty and bowel movement Interval history: Patient feeling better today with no new complaints. Pain is improving. Tolerating low fiber diet and bowels moving. Had a dose of Toradol after his shower today. Reports Tylenol is helping as well. Exam Const: General: comfortable, no acute distress, alert and awake GI: Inspection: non-distended and incision ( all incisions healing well, clean and dry) GI Palp: Yes Soft to palpation, Yes Tenderness to palpation present (GI) (appropriate post op incisional tenderness) and No Guarding due to palpation present (GI) Auscultation: normal bowel sounds Extrem: General: no clubbing, cyanosis or edema Psych: Thought process: Normal thought process present Insight: Good insight present (Psych) Objective Data Vital Signs Vital Signs: Vital Signs - 24 hr 01/08/21 20:43 01/09/21 04:21 01/09/21 06:06 Temperature 97.8 F 98.2 F 97.7 F Pulse Rate 71 66 80 Respiratory Rate 14 12 14 Blood Pressure 138/85 139/90 158/90 H Pulse Oximetry 98 98 98 01/09/21 14:08 Temperature 97.5 F L Pulse Rate 80 Respiratory Rate 16 Blood Pressure 126/91 H Pulse Oximetry 98 Intake/Output Intake/Output: Intake & Output 01/06/21 01/07/21 01/08/21 01/09/21 23:59 23:59 23:59 23:59 Intake Total 3580 2620 1620 Output Total 2699 2550 1625 Balance 1025 -2580 -5 Meds/Results Medications: Active Medications Generic Name Dose Route Start Last Admin Trade Name Freq PRN Reason Stop Dose Admin Acetaminophen 1,000 mg 01/07/21 14:45 01/09/21 10:35 Acetaminophen 500 Mg Tablet PO 1,000 mg Q6H PRN Administration Pain Rated 5 or Less Baclofen 10 mg 01/07/21 17:00 01/09/21 12:19 Baclofen 10 Mg Tablet PO 10 mg TID MARCK Administration Duloxetine HCl 30 mg 01/07/21 17:00 01/09/21 08:11 Duloxetine Hcl 30 Mg Capsule.Dr PO 30 mg BID MARCK Administration Enoxaparin Sodium 40 mg 01/08/21 09:00 01/09/21 08:11 Enoxaparin 40 Mg/0.4 Ml Syringe SUB-Q 40 mg DAILY [facility] Administration Ketorolac Tromethamine 30 mg 01/07/21 14:49 01/09/21 13:26 Ketorolac 30 Mg/Ml Vial (*Bkc) IV PUSH 01/12/21 04:28 30 mg Q6H PRN Administration Pain Rated 6 or Greater Memantine 5 mg 01/07/21 17:00 01/09/21 08:11 Memantine 5 Mg Tablet PO 5 mg BID MARCK Administration Non-Formulary Medication 40 mg 01/08/21 09:00 Lutein PO 02/07/21 09:01 DAILY [facility] Ondansetron HCl 4 mg 01/07/21 04:27 Ondansetron Inj 4 Mg/2 Ml Vial IV PUSH Q4H PRN Nausea Pantoprazole Sodium 40 mg 01/08/21 09:00 01/09/21 08:11 Pantoprazole 40 Mg Tablet PO 40 mg QAM [facility] Administration Pregabalin 225 mg 01/07/21 17:00 01/09/21 08:12 Pregabalin (*Crx) 75 Mg Capsule PO 225 mg BID MARCK Administration Radiology Results: ITS Impressions Abdomen/Pelvis CT 01/07/21 09:01 IMPRESSION: 1. Changes of recent fundoplication with distal esophagitis. 2. Infarct versus contusion of the medial spleen.
[2021-01-09 21:28] VITALS: BP 131/85; PULSE 73; RESP 18; TEMP 36.2; O2SAT 99
[2021-01-10 03:38] VITALS: BP 145/90; PULSE 64; RESP 18; TEMP 36.6; O2SAT 96
[2021-01-10] MEDS: KETOROLAC 30 MG/ML VIAL (*BKC) IV PUSH (07:08)
[2021-01-10] MEDS: BACLOFEN 10 MG TABLET PO (08:24)
[2021-01-10] MEDS: DULoxetine HCL 30 MG CAPSULE.DR PO (08:24)
[2021-01-10] MEDS: MEMANTINE 5 MG TABLET PO (08:24)
[2021-01-10] MEDS: ENOXAPARIN 40 MG/0.4 ML SYRINGE SUB-Q (08:24)
[2021-01-10] MEDS: PANTOPRAZOLE 40 MG TABLET PO (08:24)
[2021-01-10] MEDS: PREGABALIN (*CRX) 75 MG CAPSULE 225 MG PO (08:25)
--- NOTE | 2021-01-10 10:10 | PM.DS ---
DS: Admitting Diagnosis Admitting Diagnosis Admitting Diagnosis: Post-operative pain Status post laparoscopic Karla fundoplication Complex regional pain syndrome DS: Discharge Diagnosis Discharge Diagnosis (1) Post-operative pain: Code(s): G89.18 - Other acute postprocedural pain Status: Acute (2) History of Karla fundoplication: Code(s): Z98.890 - Other specified postprocedural states Status: Acute (3) CRPS (complex regional pain syndrome) type I: Code(s): G90.50 - Complex regional pain syndrome I, unspecified Status: Chronic DS: Summary Hospital Course Reason for hospitalization: This is a 35-year-old male who underwent a laparoscopic Karla fundoplication on 01/05/[address] Whitaker. He was discharged the following day, as he was tolerating a diet and pain was well controlled. He was discharged with Toradol and acetaminophen for pain control due his inability to take narcotics due to his complex regional pain syndrome. He presented back to the emergency department due to postoperative pain on 01/07/2021. CT scan of the abdomen and pelvis showed postoperative changes, but no acute abnormalities that would account for his abdominal pain. Labs were unremarkable. The patient was readmitted for postoperative pain control with IV analgesics. Hospital Course: The patient was admitted and started on IV Toradol and oral acetaminophen. His pain improved with IV Toradol. His diet was readvanced to a low-fiber diet. He has been tolerating his diet and moving his bowels. Pain has slowly improved over the last 3 days. As of today, the patient is stable for discharge and pain is better controlled. He will be able to be discharged back home on his oral acetaminophen and Toradol. I have discussed the case with Dr. Whitaker. Plan will be to follow up in 2 weeks in the office. Status at Discharge Functional status at discharge: independent ambulation Overall status at discharge: patient is progressing back to baseline Time Spent with Patient Time attestation: Total time spent providing and/or coordinating discharge services: Time spent: Less than 30 minutes Exam Const: General: comfortable, no acute distress, alert and awake Orientation/consciousness: patient oriented x3 Resp: Effort & Inspection: no respiratory distress Auscultation: clear to auscultation bilaterally Cardio: Rate: regular rate Rhythm: regular rhythm GI: Inspection: non-distended and incision (All incisions healing well, clean and dry) GI Palp: Yes Soft to palpation, Yes Tenderness to palpation present (GI) (Appropriate postoperative tenderness), No Guarding due to palpation present (GI), No Hernia present and No Rebound tenderness present Auscultation: normal bowel sounds Neuro: General: no focal motor deficits Extrem: General: no clubbing, cyanosis or edema and no calf tenderness Psych: Insight: Good insight present (Psych) Judgement: Good judgement present (Psych) DS: Data Imaging Radiologist's impression: ITS Impressions Abdomen/Pelvis CT 01/07/21 09:01 IMPRESSION: 1. Changes of recent fundoplication with distal esophagitis. 2. Infarct versus contusion of the medial spleen. Discharge Plan Discharge Attending physician on discharge: Dustin Whitaker Discharging Clinician: Bela Welch Anticipated Discharge Date/Time: 01/10/21 10:19 Patient Disposition: Home, Self-Care Activity: may shower Diet: as tolerated and regular Wound Care Instructions: incision open to air Discharge Instructions: May shower, do not submerge in water x 2 weeks post-op. No lifting more than 20 pounds for 2 weeks post-op. Continue regular diet as tolerated. Follow-up in the office with Dr. Whitaker in 2 weeks. Call the office to confirm and schedule the appointment ([phone]). Call sooner with any questions or concerns. Continue taking the Tylenol and Toradol as prescribed for pain control, that yo
== END 2021-01-10 13:10 | disposition home or self-care (01) | DRG 948 ==
LOC: ANHED 04:42 → ANH3MED 04:44
PROVIDERS: Admitting Provider Surgery; Emergency Provider Emergency Medicine; PCP Nurse Practitioner Family; Visit Provider Nurse Practitioner Family
DX: G89.18 Other acute postprocedural pain (principal); G90.50 Complex regional pain syndrome I, unspecified; F41.9 Anxiety disorder, unspecified; F17.210 Nicotine dependence, cigarettes, uncomplicated; F17.220 Nicotine dependence, chewing tobacco, uncomplicated; E66.9 Obesity, unspecified; Z68.32 Body mass index [BMI] 32.0-32.9, adult; Z90.49 Acquired absence of other specified parts of digestive tract
CPT/HCPCS: 36415; 74177; 80048; 80053; 81001; 83605; 83690; 84484; 85025; 85027; 85610; 85730; 96361; 96372; 96374; 96376; 99285; A9270; G0378; J1650; J1885; J7030; Q9967

== ENCOUNTER 2021-01-20 08:51 | Outpatient (CLI) | payer BC, SELFPAY ==
--- NOTE | ~2021-01-20 | XR_ITS ---
EXAMINATION: XR UGI w esoph water soluble DATE: 01/20/2021 09:33 INDICATION: Dysphagia, recent hiatal hernia surgery TECHNIQUE: The patient drank water-soluble contrast. Fluoroscopy of the esophagus, stomach, and proxi mal small bowel were performed. Fluoroscopy exposure time was 1.69 minutes. The DAP for this procedur e was 25.572 Gycm2. COMPARISON: None. FINDINGS: There is no mass or stricture of the esophagus. Esophageal motility is normal. There is no hiatal hernia. Esophageal emptying into the stomach was delayed. There was no gastroesophageal reflux with provocative maneuvers. The stomach and proximal small bowel show normal folding patterns. IMPRESSION: 1. Slow within normal emptying of contrast material from the esophagus into the stomach. Reviewed, dictated and finalized at location A.
== END 2021-01-20 08:52 | disposition home or self-care (01) ==
PROVIDERS: PCP Nurse Practitioner Family; Visit Provider Surgery
DX: R13.10 Dysphagia, unspecified (principal); Z98.890 Other specified postprocedural states
CPT/HCPCS: 74240

== ENCOUNTER 2021-02-13 13:45 | Emergency (ER) | payer BC, SELFPAY ==
--- NOTE | ~2021-02-13 | CT_ITS ---
EXAMINATION: CT abdomen pelvis w con DATE: 02/13/2021 17:22 INDICATION: Upper abdominal pain. Status post gastric bypass. TECHNIQUE: Computed tomography (CT) of the abdomen and pelvis was performed with 100 cc Omnipaque 350 intravenous contrast. The dose-length product was 764.12 mGy-cm. Automated exposure control and iter ative reconstruction technique were employed. COMPARISON: 01/07/2021 FINDINGS: Lung bases are unremarkable. Heart size normal. No significant pleural or pericardial effus ion. There are changes of hiatal hernia repair. There is thickening of the distal esophagus. There is subtle fatty infiltration along the lesser curvature of the stomach with mild thickening of the stom ach, possibly due to recent surgery. There is fatty infiltration of the lower anterior abdominal wall just above the umbilicus. The liver, spleen, pancreas, adrenal glands and right kidney are unremarka ble. There is a small nonobstructing left renal stone. Gallbladder is present. There are mildly dilat ed loops of small bowel in the left upper abdomen. There is thickening of the proximal small bowel. C olonic diverticulosis without evidence for diverticulitis. No significant vascular abnormality. No ly mphadenopathy. IMPRESSION: 1. Surgical changes consistent with hiatal hernia repair with stranding along the lesser curvature of the stomach which may be postoperative. Inflammation from adjacent gastritis less favored. 2: Moderate thickening of the distal esophagus, suspicious for esophagitis. 3: Mildly dilated small bowel left upper abdomen. More proximal small bowel is thickened. Consider en teritis with adjacent ileus. No definite transition site identified to suggest obstruction. Reviewed, dictated and finalized at location A. IMPRESSION: 1. Surgical changes consistent with hiatal hernia repair with stranding along t he lesser curvature of the stomach which may be postoperative. Inflammation fro m adjacent gastritis less favored. 2: Moderate thickening of the distal esophagus, suspicious for esophagitis. 3: Mildly dilated small bowel left upper abdomen. More proximal small bowel is thickened. Consider enteritis with adjacent ileus. No definite transition site identified to suggest obstruction.
[2021-02-13 14:42] VITALS: BP 106/77; PULSE 90; RESP 18; TEMP 36.6; O2SAT 100
[2021-02-13 15:04] LABS: Basophils Percent Auto 0.6 % (0.2-1.2); Eosinophils Absolute Auto 0.1 K/mm3 (0-0.3); Eosinophils Percent Auto 1.5 % (0-4.4); Hematocrit 48.6 % (42.0-52.0); Hemoglobin 16.4 g/dL (14.0-18.0); Immature Granulocyte Absolute 0.01 K/mm3 (0.00-0.031); Immature Granulocyte Percent A 0.2 % (0-0.5); Lymphocytes Absolute Auto 1.88 K/mm3 (0.9-3.2); Lymphocytes Percent Auto 30.5 % (18.3-44.2); Mean Corpuscular HGB Conc 33.7 g/dl (32-36); Mean Corpuscular Hemoglobin 30.1 pg (26-34); Mean Corpuscular Volume 89.2 fl (80-100); Mean Platelet Volume 9.1 fl (7.4-10.4); Monocytes Absolute Auto 0.6 K/mm3 (0.1-0.6); Monocytes Percent Auto 9.1 % (2.6-8.5); Neutrophils Absolute Auto 3.6 K/mm3 (1.3-6.7); Neutrophils Percent Auto 58.1 % (45.5-73.1); Platelet Count Result 261 k/mm3 (150-375); Red Blood Count 5.45 M/mm3 (4.6-6.20); White Blood Count 6.2 K/mm3 (4.5-10.0)
[2021-02-13 15:14] LABS: Alanine Aminotransferase 29 U/L (4-50); Albumin Level 4.2 g/dL (3.5-5.1); Alkaline Phosphatase 60 U/L (38-126); Anion Gap 10 mmol/L (8-16); Aspartate Amino Transferase 28 U/L (17-59); Bilirubin,Total 0.3 mg/dL (0.2-1.3); Blood Urea Nitrogen 15 mg/dL (9-20); Carbon Dioxide 23 mmol/L (22-30); Chloride 108 mmol/L (98-107); Estimated CRCL calculation 129 ml/min; Estimated Glomerular Filt Rate > 60; Glucose 109 mg/dL (75-110); Lipase 48 U/L (23-300); Sodium 141 mmol/L (137-145)
[2021-02-13 15:42] LABS: Add Urine Microscopic? YES; Appearance Urine Clear (Clear); Bilirubin Urine Negative (Negative); Blood Urine Negative (Negative); Color Urine Yellow (Yellow); Glucose Urine UA Negative (Negative); Ketones Urine Negative (Negative); Leukocyte Esterase Ur Negative LEU/UL (Negative); Mucus Urine Rare /lpf; Nitrate Urine Negative (Negative); Protein Urine 1+ mg/dL (Negative); RBC Urine 0-2 /hpf (0-2); Specific Grav Ur 1.024 (1.001-1.035); Urobilinogen Urine Negative mg/dL (<2.0); WBC Urine 0-3 /hpf
[2021-02-13 16:14] VITALS: BP 138/96; PULSE 83; RESP 18; O2SAT 100
--- NOTE | 2021-02-13 16:28 | ED.ABDPAIN ---
HPI - Abdominal Pain General Chief Complaint: Abdominal Pain Stated Complaint: POST OP ABD PAIN Time Seen by Provider: 02/13/21 16:04 Source: patient Mode of arrival: ambulatory Limitations: no limitations History of Present Illness HPI narrative: Patient is 35 years old white male status post Chencho fundoplication January 05, 2021 drove himself to the emergency room, complaining of right upper quadrant pain, intermittent and indigestion, burning epigastric sensation over the last 3 days. Patient denies any vomiting, fever. Patient reported the above symptoms similar to his symptoms prior to the fundoplication patient chew, use CBD, drinks alcohol occasionally probably a little bit more lately because of the holiday. Related Data Home Medications Medication Instructions Recorded Confirmed baclofen 10 mg PO TID 09/06/20 01/30/21 duloxetine 30 mg PO BID 09/06/20 01/30/21 lutein 40 mg PO DAILY 09/06/20 01/30/21 omega-3 fatty acids 1,000 mg PO DAILY 09/06/20 01/30/21 pantoprazole 40 mg PO BID 09/06/20 01/30/21 pregabalin 225 mg PO BID 09/06/20 01/30/21 sucralfate 1 gram tablet 1 g PO TID tablet 09/14/20 01/30/21 multivitamin 1 tablet PO DAILY 10/24/20 01/30/21 vitamin B complex 1 tablet PO DAILY 10/24/20 01/30/21 memantine 5 mg PO BID 01/05/21 01/30/21 naltrexone 4.5 mg PO BID 01/07/21 01/30/21 Allergies Allergy/AdvReac Type Severity Reaction Status Date / Time poison mena extract Allergy Unknown Hives Verified 02/13/21 16:09 bee venom protein (honey bee) Allergy Hives Verified 02/13/21 16:09 [bees] Review of Systems Review of Systems: Narrative: CONSTITUTIONAL: Denies fever, chills, or sweats. EYES: Denies visual changes, redness, or discharge. ENT: Denies rhinorrhea, congestion, sore throat, or otalgia. CARDIOVASCULAR: Denies chest pain, palpitations, or edema. RESPIRATORY: Denies cough or dyspnea. GASTROINTESTINAL: Epigastric pain GENITOURINARY: Denies dysuria or hematuria. SKIN: Denies rash or itching. MUSCULOSKELETAL: Denies back pain, joint pain, or myalgia. NEUROLOGIC: Denies headache, numbness, or weakness. PSYCHIATRIC: Denies anxiety or depression. [facility] Past Medical History Medical History Anxiety CRPS (complex regional pain syndrome) type I Right hand and right arm - developed after surgery to right hand and managed by pain management. 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 Musculoskeletal: Normal range of motion, nontender back Neurologic: Alert and oriented ?3, COMPUTER ENGINEERING TECHNICIAN is normal as tested, no
[2021-02-13 17:03] VITALS: BP 136/85; PULSE 74; RESP 15; O2SAT 99
[2021-02-13] MEDS: SODIUM CHLORIDE 0.9% IV 1,000 ML 999 ML IV CONT (17:07)
[2021-02-13 18:29] VITALS: BP 130/82; PULSE 70; RESP 17; O2SAT 100
== END 2021-02-13 18:31 | disposition home or self-care (01) ==
PROVIDERS: Emergency Medicine; Emergency Provider Emergency Medicine; PCP Nurse Practitioner Family
DX: R10.13 Epigastric pain (principal); F41.9 Anxiety disorder, unspecified; G90.511 Complex regional pain syndrome I of right upper limb; E66.9 Obesity, unspecified; Z68.28 Body mass index [BMI] 28.0-28.9, adult; F17.220 Nicotine dependence, chewing tobacco, uncomplicated; R93.3 Abnormal findings on diagnostic imaging of other parts of digestive tract
CPT/HCPCS: 36415; 74177; 80053; 81001; 83690; 85025; 96360; 99284; J7030; Q9967

== ENCOUNTER 2021-02-22 14:02 | Outpatient (CLI) | payer BC, SELFPAY | END 2021-02-22 14:03 | disposition home or self-care (01) | PROVIDERS: PCP Nurse Practitioner Family; Visit Provider Nurse Practitioner Family | DX: R19.7 Diarrhea, unspecified (principal) | CPT/HCPCS: 87045; 87046; 87177; 87209; 87427 ==

== ENCOUNTER 2021-03-04 23:59 | Emergency (ER) | payer BC, SELFPAY ==
[2021-03-05 00:05] VITALS: BP 133/93; PULSE 67; RESP 18; TEMP 36.6; O2SAT 98
[2021-03-05 00:38] LABS: Basophils Percent Auto 0.6 % (0.2-1.2); Eosinophils Absolute Auto 0.1 K/mm3 (0-0.3); Eosinophils Percent Auto 2.4 % (0-4.4); Hemoglobin 15.4 g/dL (14.0-18.0); Immature Granulocyte Absolute 0.01 K/mm3 (0.00-0.031); Immature Granulocyte Percent A 0.2 % (0-0.5); Lymphocytes Absolute Auto 1.93 K/mm3 (0.9-3.2); Lymphocytes Percent Auto 35.9 % (18.3-44.2); Mean Corpuscular HGB Conc 32.8 g/dl (32-36); Mean Corpuscular Hemoglobin 29.6 pg (26-34); Mean Corpuscular Volume 90.2 fl (80-100); Mean Platelet Volume 8.8 fl (7.4-10.4); Monocytes Absolute Auto 0.6 K/mm3 (0.1-0.6); Monocytes Percent Auto 11.3 % (2.6-8.5); Neutrophils Absolute Auto 2.7 K/mm3 (1.3-6.7); Neutrophils Percent Auto 49.6 % (45.5-73.1); Platelet Count Result 235 k/mm3 (150-375); Red Blood Count 5.21 M/mm3 (4.6-6.20); Red Cell Distribution Width 12.2 % (11.5-14.5); White Blood Count 5.4 K/mm3 (4.5-10.0)
[2021-03-05] MEDS: MAG HYDROX/AL HYDROX/SIMETH 30 ML UDC PO (00:50)
[2021-03-05] MEDS: DICYCLOMINE HCL INJ 20 MG/2 ML VIAL IM (00:50)
[2021-03-05 01:00] VITALS: BP 127/79; PULSE 66; RESP 16; O2SAT 97
[2021-03-05 01:09] LABS: Alanine Aminotransferase 25 U/L (4-50); Albumin Level 3.9 g/dL (3.5-5.1); Alkaline Phosphatase 56 U/L (38-126); Anion Gap 8 mmol/L (8-16); Aspartate Amino Transferase 26 U/L (17-59); Bilirubin,Total 0.3 mg/dL (0.2-1.3); Blood Urea Nitrogen 15 mg/dL (9-20); Calcium 8.9 mg/dL (8.4-10.2); Carbon Dioxide 25 mmol/L (22-30); Chloride 107 mmol/L (98-107); Estimated CRCL calculation 129 ml/min; Estimated Glomerular Filt Rate > 60; Glucose 95 mg/dL (75-110); Lipase 48 U/L (23-300); Potassium 4.2 mmol/L (3.4-5.0); Sodium 140 mmol/L (137-145)
[2021-03-05 02:00] VITALS: BP 116/79; PULSE 59; RESP 14; O2SAT 97
--- NOTE | 2021-03-05 02:08 | ED.GENADULT ---
HPI - General Adult General Chief complaint: Abdominal Pain Stated complaint: Abd pain Time Seen by Provider: 03/05/21 00:09 History of Present Illness HPI narrative: Patient is a 35-year-old male who presents ER with abdominal pain. Diffuse but worse in the upper abdomen. Cramping in nature. Reports he has been having a lot of gas. Patient has not had a bowel movement today. No diarrhea. Has history of abdominal issues and sees a GI physician. He is scheduled to have a EGD and a colonoscopy in the near future. Related Data Home Medications Medication Instructions Recorded Confirmed lutein 40 mg PO DAILY 09/06/20 02/27/21 omega-3 fatty acids 1,000 mg PO DAILY 09/06/20 02/27/21 multivitamin 1 tablet PO DAILY 10/24/20 02/27/21 vitamin B complex 1 tablet PO DAILY 10/24/20 02/27/21 memantine 5 mg PO BID 01/05/21 02/27/21 Allergies Allergy/AdvReac Type Severity Reaction Status Date / Time poison mena extract Allergy Unknown Hives Verified 02/27/21 10:43 bee venom protein (honey bee) Allergy Hives Verified 02/27/21 10:43 [bees] Review of Systems Review of Systems: All systems reviewed & are unremarkable except as noted in HPI and below Constitutional: Constitutional: Denies chills, Denies fever(s) and Denies weakness ENT: Denies nasal congestion and Denies sore throat Cardiovascular: Cardiovascular: Denies chest pain and Denies radiating jaw, neck or arm pain Gastrointestinal: Gastrointestinal: Reports bloating, Denies nausea and Denies vomiting PMFSH Past Medical History Medical History Anxiety CRPS (complex regional pain syndrome) type I Right hand and right arm - developed after surgery to right hand and managed by pain management. Hiatal hernia with GERD and esophagitis Nausea Obesity Overweight (BMI 25.0-29.9) Tobacco use Surgical History Surgical History History of appendectomy History of esophagogastroduodenoscopy (EGD) History of Karla fundoplication History of orthopedic surgery Family History Family History Father Cerebrovascular accident Mother Hypertension Other Diabetes mellitus Heart disease Cancer Social History Social History Smoking status: Light tobacco smoker (chews tobacco) Smokeless tobacco user: chewing tobacco Additional smoking assessment comments: 3/4 OF A CAN/DAY X 15 YRS;social smoker Alcohol intake: current Drinks per week: 4 Substance use: never Substance use type: does not use 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 HEAD: Normocephalic, atraumatic. ENT: Mucous membranes moist. CHEST: Clear to auscultation. No respiratory distress. HEART: Regular rate and rhythm. Normal peripheral pulses. ABDOMEN: Soft, nontender, nondistended. EXTREMITIES: Normal range of motion. No edema. NEURO: Alert and oriented x3. PSYCH: Normal mood and affect. Course Course Emergency Course: Patient feels improved with Bentyl on simethicone. Vital Signs Vital signs: Vital Signs Temperature 97.9 F 03/05/21 00:05 Pulse Rate 67 03/05/21 00:05 Respiratory Rate 18 03/05/21 00:05 Blood Pressure 133/93 H 03/05/21 00:05 Pulse Oximetry 98 03/05/21 00:05 Temperature 97.9 F 03/05/21 00:05 Pulse Rate 67 03/05/21 00:05 Respiratory Rate 18 03/05/21 00:05 Blood Pressure 133/93 H 03/05/21 00:05 Pulse Oximetry 98 03/05/21 00:05 Medical Decision Making Vital Signs Vital Signs: Vital Signs Temperature 97.9 F 03/05/21 00:05 Pulse Rate 67 03/05/21 00:05 Respiratory Rate 18 03/05/21 00:05 Blood Pressure 133/93 H 03/05/21 00:05 Pulse Oxime
== END 2021-03-05 02:30 | disposition home or self-care (01) ==
PROVIDERS: Emergency Provider Emergency Medicine; PCP Nurse Practitioner Family
DX: R14.0 Abdominal distension (gaseous) (principal); R10.10 Upper abdominal pain, unspecified; G90.511 Complex regional pain syndrome I of right upper limb; E66.9 Obesity, unspecified; Z68.28 Body mass index [BMI] 28.0-28.9, adult; F17.220 Nicotine dependence, chewing tobacco, uncomplicated
CPT/HCPCS: 36415; 80053; 83690; 85025; 96372; 99283; A9270; J0500

== ENCOUNTER 2021-03-14 02:36 | Day surgery (SDC) | payer BC, SELFPAY ==
[2021-03-08 09:36] VITALS: BMI 29.0
[2021-03-14 07:57] VITALS: BP 125/81; PULSE 95; RESP 16; TEMP 36.1; O2SAT 99; BMI 28.1
--- NOTE | 2021-03-14 08:11 | WPDANESEPPF ---
Anes - Initial Pre Proc Eval Procedure: Operation Date: 03/14/21 09:15 Proposed Procedures p Colonoscopy - Artie Stanford MD Date/Time: 03/14/21 08:11 Surgeon: Artie Stanford MD Pre Op Diagnosis: diarrhea, abnormal cat scan Patient Data Age: 35 Gender: M Height: 1.75 m Weight: 86.5 kg Last Vital Signs Temp 96.9 F L 03/14/21 07:57 Pulse 95 03/14/21 07:57 Resp 16 03/14/21 07:57 BP 125/81 03/14/21 07:57 Pulse Ox 99 03/14/21 07:57 Allergies Allergy/AdvReac Type Severity Reaction Status Date / Time poison mena extract Allergy Unknown Hives Verified 03/14/21 07:56 bee venom protein (honey bee) Allergy Hives Verified 03/14/21 07:56 [bees] Home Medications Medication Instructions Recorded Confirmed Type epinephrine 0.3 ml SUB-Q ONCE #2 each 05/23/20 03/08/21 Rx lutein 40 mg PO DAILY 09/06/20 03/08/21 History omega-3 fatty acids 1,000 mg PO DAILY 09/06/20 03/08/21 History multivitamin 1 tablet PO DAILY 10/24/20 03/08/21 History vitamin B complex 1 tablet PO DAILY 10/24/20 03/08/21 History acetaminophen 1,000 mg PO Q6H PRN #40 tablet 01/06/21 03/08/21 Rx cholestyramine (with sugar) 4 gram 4 g PO DAILY #378 g 02/27/21 03/08/21 Rx oral powder dicyclomine 20 mg tablet 20 mg PO TID #90 tablet 02/27/21 03/08/21 Rx simethicone 125 mg PO QID #20 cap 03/05/21 03/08/21 Rx hydrocodone-acetaminophen 1 tablet PO Q6H PRN 03/08/21 03/14/21 History Patient hx anesthesia problems: none Family hx anesthesia problems: none PMFSH Past Medical History Medical History Anxiety CRPS (complex regional pain syndrome) type I Right hand and right arm - developed after surgery to right hand and managed by pain management. Hiatal hernia with GERD and esophagitis Nausea Obesity Overweight (BMI 25.0-29.9) Tobacco use Surgical History Surgical History History of appendectomy History of esophagogastroduodenoscopy (EGD) History of Karla fundoplication History of orthopedic surgery Family History Family History Father Cerebrovascular accident Mother Hypertension Other Diabetes mellitus Heart disease Cancer Social History Social History Smoking status: Current some day smoker Tobacco type: smokeless tobacco Smokeless tobacco user: chewing tobacco Additional smoking assessment comments: 3/4 OF A CAN/DAY X 15 YRS;social smoker Alcohol intake: current Drinks per week: 2 Substance use: current Substance use type: marijuana Living arrangements: with family 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 Questions were solicited and answers provided to the satisfaction of the patient/family/POA.
[2021-03-14] MEDS: LACTATED RINGERS 1,000 ML 150 ML IV CONT (08:14)
--- NOTE | 2021-03-14 08:30 | WPDHPUPDATE1 ---
History and Physical Update Update Date/Time: 03/14/21 08:30 History and Physical has been reviewed, including an updated exam of the patient. There are NO changes in the patient's condition. Risks, benefits, and alternatives have been discussed and questions answered. Patient agrees to proceed with procedure.
[2021-03-14 08:49] VITALS: BP 100/63; PULSE 88; RESP 16; O2SAT 96
[2021-03-14 08:59] VITALS: BP 98/62; PULSE 80; RESP 16; O2SAT 99
[2021-03-14 09:09] VITALS: BP 106/64; PULSE 82; RESP 23; O2SAT 100
== END 2021-03-14 09:22 | disposition home or self-care (01) ==
PROVIDERS: PCP Nurse Practitioner Family; Visit Provider Internal Medicine Gastroenterology
PROC: 0DJD8ZZ Inspection of Lower Intestinal Tract, Via Natural or Artificial Opening Endoscopic (ICD-10-PCS; CPT 45378; principal; 2021-03-14 09:15)
DX: K52.9 Noninfective gastroenteritis and colitis, unspecified (principal); R10.30 Lower abdominal pain, unspecified; K64.8 Other hemorrhoids; G90.511 Complex regional pain syndrome I of right upper limb; K44.9 Diaphragmatic hernia without obstruction or gangrene; K21.9 Gastro-esophageal reflux disease without esophagitis; E66.9 Obesity, unspecified; Z68.28 Body mass index [BMI] 28.0-28.9, adult; F17.220 Nicotine dependence, chewing tobacco, uncomplicated
CPT/HCPCS: 45380; 88305; J2704; J7120

== ENCOUNTER 2021-03-15 07:42 | Outpatient (CLI) | payer BC, SELFPAY ==
--- NOTE | ~2021-03-15 | NM_ITS ---
EXAMINATION: NM hepatobiliary wo pharm DATE: 03/15/2021 10:06 INDICATION: Right upper quadrant abdominal pain. COMPARISON: CT abdomen and pelvis 02/13/2021 TECHNIQUE: 4.9 mCi Tc-99m mebrofenin (Choletec) was administered intravenously. Scintigraphic images of the abdomen were obtained for one hour. Then, the patient drank 8 oz Ensure, and imaging was cont inued for 60 minutes. FINDINGS: There is normal clearance of radiotracer from the blood pool. There is homogeneous tracer u ptake by the liver. Activity progresses to the bowel and gallbladder. Gallbladder ejection fraction (GBEF) was 96%. Note that with this technique, normal GBEF >= 33%. IMPRESSION: 1. Normal hepatobiliary scintigraphy. Reviewed, dictated and finalized at location A.
== END 2021-03-15 07:43 | disposition home or self-care (01) ==
PROVIDERS: PCP Nurse Practitioner Family; Visit Provider Nurse Practitioner Family
DX: R10.11 Right upper quadrant pain (principal)
CPT/HCPCS: 78226; A9537

== ENCOUNTER 2021-03-17 16:52 | Emergency (ER) | payer BC, SELFPAY ==
[2021-03-17 16:54] VITALS: BP 153/99; PULSE 108; RESP 18; TEMP 37.1; O2SAT 100
[2021-03-17 17:07] LABS: Basophils Percent Auto 0.5 % (0.2-1.2); Eosinophils Absolute Auto 0.1 K/mm3 (0-0.3); Eosinophils Percent Auto 1.2 % (0-4.4); Hematocrit 50.4 % (42.0-52.0); Hemoglobin 16.9 g/dL (14.0-18.0); Immature Granulocyte Absolute 0.02 K/mm3 (0.00-0.031); Immature Granulocyte Percent A 0.3 % (0-0.5); Lymphocytes Absolute Auto 1.46 K/mm3 (0.9-3.2); Lymphocytes Percent Auto 21.9 % (18.3-44.2); Mean Corpuscular HGB Conc 33.5 g/dl (32-36); Mean Corpuscular Hemoglobin 30.1 pg (26-34); Mean Corpuscular Volume 89.7 fl (80-100); Mean Platelet Volume 8.6 fl (7.4-10.4); Monocytes Absolute Auto 0.6 K/mm3 (0.1-0.6); Monocytes Percent Auto 9.3 % (2.6-8.5); Neutrophils Absolute Auto 4.5 K/mm3 (1.3-6.7); Neutrophils Percent Auto 66.8 % (45.5-73.1); Platelet Count Result 269 k/mm3 (150-375); Red Blood Count 5.62 M/mm3 (4.6-6.20); Red Cell Distribution Width 11.9 % (11.5-14.5); White Blood Count 6.7 K/mm3 (4.5-10.0)
[2021-03-17 17:21] LABS: Alanine Aminotransferase 33 U/L (4-50); Alkaline Phosphatase 69 U/L (38-126); Aspartate Amino Transferase 30 U/L (17-59); Bilirubin,Total 0.7 mg/dL (0.2-1.3); Glucose 112 mg/dL (75-110); Lipase 45 U/L (23-300)
[2021-03-17 17:24] LABS: Add Urine Microscopic? YES; Appearance Urine Clear (Clear); Bilirubin Urine Negative (Negative); Blood Urine Negative (Negative); Color Urine Yellow (Yellow); Glucose Urine UA Negative (Negative); Ketones Urine Negative (Negative); Leukocyte Esterase Ur Negative LEU/UL (Negative); Mucus Urine Few /lpf; Nitrate Urine Negative (Negative); Protein Urine Negative (Negative); RBC Urine 0-2 /hpf (0-2); Specific Grav Ur 1.026 (1.001-1.035); WBC Urine 0-3 /hpf
[2021-03-17 17:25] LABS: Albumin Level 4.5 g/dL (3.5-5.1); Anion Gap 12 mmol/L (8-16); Blood Urea Nitrogen 13 mg/dL (9-20); Carbon Dioxide 26 mmol/L (22-30); Chloride 103 mmol/L (98-107); Estimated CRCL calculation 114 ml/min; Estimated Glomerular Filt Rate > 60; Potassium 3.7 mmol/L (3.4-5.0); Sodium 141 mmol/L (137-145)
[2021-03-17 18:50] VITALS: BP 122/86; PULSE 91; RESP 17; O2SAT 98
--- NOTE | 2021-03-17 19:02 | ED.ABDPAIN ---
HPI - Abdominal Pain General Chief Complaint: Abdominal Pain Stated Complaint: abdominal pain Time Seen by Provider: 03/17/21 18:34 Source: patient Mode of arrival: ambulatory Limitations: no limitations History of Present Illness HPI narrative: Patient is a 35-year-old male complaining of right upper quadrant pain, 8 out of 10, sharp, nonradiating, worse after eating, accompanied by diarrhea, that is been going on X 2 weeks. Patient states that he has been worked up for this multiple times and has seen his primary care physician and a hand tile maker. Patient states that he recently had a HIDA scan done and a colonoscopy and waiting for his results. Patient also has had CT scan of his abdomen pelvis this past January for the same complaint. Patient denies any nausea vomiting, fever or chills. Related Data Home Medications Medication Instructions Recorded Confirmed lutein 40 mg PO DAILY 09/06/20 03/08/21 omega-3 fatty acids 1,000 mg PO DAILY 09/06/20 03/08/21 multivitamin 1 tablet PO DAILY 10/24/20 03/08/21 vitamin B complex 1 tablet PO DAILY 10/24/20 03/08/21 hydrocodone-acetaminophen 1 tablet PO Q6H PRN 03/08/21 03/14/21 Allergies Allergy/AdvReac Type Severity Reaction Status Date / Time poison mena extract Allergy Unknown Hives Verified 03/17/21 18:52 bee venom protein (honey bee) Allergy Hives Verified 03/17/21 18:52 [bees] Review of Systems Review of Systems: All systems reviewed & are unremarkable except as noted in HPI and below Constitutional: Constitutional: Denies body ache(s), Denies chills, Denies excessive sweating, Denies fatigue, Denies fever(s), Denies headache(s), Denies lethargy, Denies malaise, Denies weakness and Denies weight loss Eyes: Eyes: Denies blurry vision, Denies change in vision and Denies loss of vision ENT: Denies dizziness, Denies ear discharge, Denies headache(s), Denies lip swelling, Denies epistaxis, Denies nasal congestion, Denies neck pain, Denies throat swelling and Denies tongue swelling Cardiovascular: Cardiovascular: Denies chest pain, Denies chest pain at rest, Denies chest pain with activity, Denies diaphoresis, Denies rapid heart rate, Denies edema, Denies irregular heart rhythm, Denies lightheadedness, Denies palpitations, Denies dyspnea and Denies dyspnea on exertion Respiratory: Respiratory: Denies chest congestion, Denies cough, Denies hemoptysis, Denies dyspnea and Denies dyspnea on exertion Gastrointestinal: Gastrointestinal: Denies melena, Denies hematochezia, Denies nausea, Denies vomiting and Denies hematemesis Musculoskeletal: Musculoskeletal: Denies abnormal gait, Denies deformity, Denies joint swelling, Denies limited range of motion, Denies neck pain and Denies numbness Neurologic: Denies Abnormal speech present, Denies abnormal gait, Denies confusion, Denies dizziness, Denies headache(s), Denies focal weakness, Denies loss of vision, Denies numbness, Denies Other visual disturbances, Denies Sensory deficit (Neuro) and Denies weakness Psychiatric: Psychiatric: Denies confusion, Denies depression, Denies auditory hallucinations, Denies homicidal ideation and Denies suicidal ideation Endocrine: Endocrine: Denies cold intolerance, Denies excessive sweating, Denies fatigue, Denies heat intolerance and Denies palpitations Hematologic/Lymphatic: Hematologic/Lymphatic: Denies easy bleeding and Denies easy bruising Allergic/Immunologic: Allergic/Immunologic: Denies lip swelling, Denies throat swelling and Denies tongue swelling PMFSH Past Medical History Medical History Anxiety CRPS (complex regional pain syndrome) type I Right hand and right arm - developed after surgery to right hand and managed by pain management. Hiatal hernia with GERD and esophagitis Nausea Obesity Overweight (BMI 25.0-29.9) Tobacco use Surgical History Surgical History History of appendectomy History of esophagogastroduodenoscopy (E
[2021-03-17] MEDS: KETOROLAC (*BKC) 60 MG/2 ML VIAL IM (20:04)
[2021-03-17] MEDS: HYDROcodone/acetaminophen (*CRX) 5-325 MG TABLET 2 TAB PO (20:04)
[2021-03-17 20:13] VITALS: BP 124/82; PULSE 89; RESP 20; O2SAT 98
== END 2021-03-17 20:14 | disposition home or self-care (01) ==
PROVIDERS: Emergency Provider Emergency Medicine; PCP Nurse Practitioner Family
DX: R10.11 Right upper quadrant pain (principal); G90.511 Complex regional pain syndrome I of right upper limb; K21.00 Gastro-esophageal reflux disease with esophagitis, without bleeding; K44.9 Diaphragmatic hernia without obstruction or gangrene; E66.9 Obesity, unspecified; Z68.28 Body mass index [BMI] 28.0-28.9, adult; F17.220 Nicotine dependence, chewing tobacco, uncomplicated; F17.210 Nicotine dependence, cigarettes, uncomplicated
CPT/HCPCS: 36415; 80053; 81001; 83690; 85025; 96372; 99283; A9270; J1885

== ENCOUNTER 2021-03-23 11:15 | Outpatient (CLI) | payer BC, SELFPAY ==
[2021-03-23 12:31] LABS: Hematocrit 50.7 % (42.0-52.0); Hemoglobin 17.4 g/dL (14.0-18.0); Mean Corpuscular HGB Conc 34.3 g/dl (32-36); Mean Corpuscular Hemoglobin 30.1 pg (26-34); Mean Corpuscular Volume 87.7 fl (80-100); Mean Platelet Volume 8.9 fl (7.4-10.4); Platelet Count Result 312 k/mm3 (150-375); Red Blood Count 5.78 M/mm3 (4.6-6.20); Red Cell Distribution Width 11.9 % (11.5-14.5); White Blood Count 10.9 K/mm3 (4.5-10.0)
[2021-03-23 12:39] LABS: Alanine Aminotransferase 24 U/L (4-50); Albumin Level 4.7 g/dL (3.5-5.1); Alkaline Phosphatase 78 U/L (38-126); Amylase 62 U/L (30-110); Anion Gap 11 mmol/L (8-16); Aspartate Amino Transferase 26 U/L (17-59); Bilirubin,Total 0.6 mg/dL (0.2-1.3); Blood Urea Nitrogen 14 mg/dL (9-20); Calcium 9.9 mg/dL (8.4-10.2); Carbon Dioxide 25 mmol/L (22-30); Chloride 105 mmol/L (98-107); Estimated Glomerular Filt Rate > 60; Glucose 122 mg/dL (75-110); Lipase 44 U/L (23-300); Potassium 4.2 mmol/L (3.4-5.0); Sodium 141 mmol/L (137-145)
[2021-03-23 13:08] LABS: Thyroid Stimulating Hormone 0.304 uIU/mL (0.465-4.680)
== END 2021-03-23 11:16 | disposition home or self-care (01) ==
LOC: ANHIMG 11:18
PROVIDERS: PCP Nurse Practitioner Family; Visit Provider Nurse Practitioner Family
DX: R63.4 Abnormal weight loss (principal)
CPT/HCPCS: 36415; 80053; 82150; 83690; 84443; 85027

== ENCOUNTER → 2021-03-29 07:45 | Outpatient (CLI) | payer BC, SELFPAY ==
--- NOTE | ~2021-03-29 | US_ITS ---
US soft tissue abdomen DATE: 03/29/2021 08:47 INDICATION: Abdominal wall mass, right upper quadrant near right upper quadrant abdominal incision si te for hiatal hernia TECHNIQUE: Real-time imaging and color flow imaging of the right upper quadrant anterior abdominal wa ll COMPARISON: 02/13/2021 CT abdomen pelvis FINDINGS: At the area of clinical complaint of lump at the anterior right upper quadrant abdominal wa ll is an up to 2 cm convex anterior nonspecific hypoechoic area Comment which may represent ventral abdominal wall hernia or spigelian hernia. CT abdomen pelvis sergio elation is recommended. IMPRESSION: CT abdomen pelvis examination is recommended for more definitive evaluation Reviewed, dictated and finalized at Location A. Reviewed, dictated and finalized at location B. IMPRESSION: CT abdomen pelvis examination is recommended for more definitive ev aluation
== END ==
PROVIDERS: PCP Nurse Practitioner Family; Visit Provider Family Medicine
DX: R19.00 Intra-abdominal and pelvic swelling, mass and lump, unspecified site (principal)
CPT/HCPCS: 76705

== ENCOUNTER 2021-04-04 17:32 | Outpatient (CLI) | payer BC, SELFPAY ==
--- NOTE | ~2021-04-04 | CT_ITS ---
EXAMINATION: CT abdomen pelvis wo con EXAM DATE: 04/04/2021 17:49 INDICATION: Mass abdominal wall. TECHNIQUE: Spiral CT of the abdomen and pelvis was performed without contrast. Axial, coronal and s agittal images of the abdomen and pelvis were reviewed. The dose-length product (DLP) for this exami [facility] was 528.84 mGy-cm. The exposure was tailored according to patient size (auto mA exposure cont rol), and iterative reconstruction (ASIR) was used as additional dose reduction technique. Comparison is made to prior examination from 02/13/2021. FINDINGS: There are approximately a dozen liver hypodensities which were not present or evidence on t he prior contrast-enhanced CT scan from January. These measure up to about 1.7 cm. Patient is young to bell ve developed metastatic disease, so granulomatous process or abscesses could also be considered. At t he right mid abdominal wall there is a region measuring approximately 2.5 cm between the abdominal mu scles, with ill-defined margins, which could be a previous trocar site with development of scar tissu e, but sarcoma can have similar appearance and is not excludable given. This is likely the same regio n imaged on ultrasound. Distal aspect of the esophagus has persistent wall thickening, could be chronic esophagitis or esopha geal cancer.. Patient may have had Karla fundoplication. The spleen, adrenal glands and pancreas ar e unremarkable. Gallbladder is unremarkable. No biliary obstruction. No hydronephrosis. There is pu nctate left nephrolithiasis. The prostate is unremarkable. The bladder is unremarkable. There is n o retroperitoneal or pelvic lymphadenopathy. Probable appendectomy. The stomach and small bowel are unremarkable. There is expected amount of co lonic stool. No free intraperitoneal gas. The heart is normal in size. There are no pericardial or pleural effusions. The lung bases are unremarkable. There are no osteoblastic or osteolytic lesi ons identified. IMPRESSION: 1. Development of soft tissue ill-defined masslike region within right mid abdominal wall, most like ly scar tissue given this is probably a prior trocar site (Clinical Correlation). Sarcoma can have s imilar appearance. 2. Interval development of approximately a dozen nonspecific liver lesions, differential diagnosis i ncluding metastatic disease, granulomatous process, abscesses. 3. Persistent distal esophageal wall edema, differential diagnosis including chronic esophagitis, ca ncer. 4. Punctate left nephrolithiasis. Reviewed, dictated and finalized at location G. IMPRESSION: 1. Development of soft tissue ill-defined masslike region within right mid abd ominal wall, most likely scar tissue given this is probably a prior trocar site (Clinical Correlation). Sarcoma can have similar appearance. 2. Interval development of approximately a dozen nonspecific liver lesions, di fferential diagnosis including metastatic disease, granulomatous process, absce sses. 3. Persistent distal esophageal wall edema, differential diagnosis including c hronic esophagitis, cancer. 4. Punctate left nephrolithiasis.
== END 2021-04-04 17:33 | disposition home or self-care (01) ==
PROVIDERS: PCP Nurse Practitioner Family; Visit Provider Nurse Practitioner Family
DX: R19.00 Intra-abdominal and pelvic swelling, mass and lump, unspecified site (principal); N20.0 Calculus of kidney
CPT/HCPCS: 74176